=== PATIENT | male | born 1965 | race Caucasian/White ===

== ENCOUNTER 2020-07-03 09:58 | Outpatient (REF) | payer BC, SELFPAY ==
[2020-07-03 11:36] LABS: Estimated Average Glucose 226 mg/dL; Hemoglobin A1c % 9.5 %
[2020-07-03 12:05] LABS: Alanine Aminotransferase 34 U/L (0-40); Alkaline Phosphatase 62 U/L (39-117); Anion Gap 14 (12-20); Aspartate Amino Transferase 23 U/L (5-37); Bilirubin Total 0.7 mg/dL (0.0-1.0); Blood Urea Nitrogen 17 mg/dL (9-16); Calcium 8.4 mg/dL (8.4-10.2); Carbon Dioxide 27 mmol/L (22-29); Chloride 102 mmol/L (96-108); Cholesterol 231 mg/dL; Estimated Glomerular Filt Rate > 60; Glucose Fasting 227 mg/dL (60-99); HDL Cholesterol 42 mg/dL; LDL Cholesterol Calculated 163 mg/dl; Potassium 4.1 mmol/L (3.3-5.1); Sodium 139 mmol/L (135-145); Total Protein 6.4 g/dL (6.5-8.0); Triglycerides 131 mg/dL
[2020-07-03 12:25] LABS: Prostate Specific Antigen 0.44 ng/mL (<0.05-4.0)
== END 2020-07-03 09:59 | disposition home or self-care (01) ==
LOC: HO.MANLDS 09:58
PROVIDERS: PCP Internal Medicine; Visit Provider Internal Medicine
DX: Z00.01 Encounter for general adult medical examination with abnormal findings (principal); Z12.5 Encounter for screening for malignant neoplasm of prostate; E11.9 Type 2 diabetes mellitus without complications
CPT/HCPCS: 36415; 80053; 80061; 82043; 83036; 84153

== ENCOUNTER 2020-08-21 10:09 | Outpatient (REF) | payer BC, SELFPAY ==
[2020-08-21 11:55] LABS: Estimated Average Glucose 192 mg/dL; Hemoglobin A1c % 8.3 %
== END 2020-08-21 10:10 | disposition home or self-care (01) ==
LOC: HO.MANLDS 10:09
PROVIDERS: PCP Internal Medicine; Visit Provider Internal Medicine
DX: E11.9 Type 2 diabetes mellitus without complications (principal)
CPT/HCPCS: 36415; 83036

== ENCOUNTER 2020-10-29 08:00 | Outpatient (REF) | payer BC, SELFPAY ==
[2020-10-29 11:31] LABS: Estimated Average Glucose 174 mg/dL; Hemoglobin A1c % 7.7 %
== END 2020-10-29 08:01 | disposition home or self-care (01) ==
LOC: HO.MANLDS 08:00
PROVIDERS: PCP Internal Medicine; Visit Provider Internal Medicine
DX: E11.9 Type 2 diabetes mellitus without complications (principal)
CPT/HCPCS: 36415; 83036

== ENCOUNTER 2021-02-05 08:07 | Outpatient (REF) | payer BC, SELFPAY ==
[2021-02-05 11:13] LABS: Estimated Average Glucose 200 mg/dL; Hemoglobin A1c % 8.6 %
== END 2021-02-05 08:08 | disposition home or self-care (01) ==
LOC: HO.MANLDS 08:07
PROVIDERS: PCP Internal Medicine; Visit Provider Internal Medicine
DX: E11.9 Type 2 diabetes mellitus without complications (principal)
CPT/HCPCS: 36415; 83036

== ENCOUNTER 2021-06-13 12:10 | Outpatient (REF) | payer BC, SELFPAY ==
[2021-06-13 14:11] LABS: Estimated Average Glucose 131 mg/dL; Hemoglobin A1c % 6.2 %
== END 2021-06-13 12:11 | disposition home or self-care (01) ==
LOC: HO.10HDL 12:10
PROVIDERS: Visit Provider Internal Medicine
DX: E11.9 Type 2 diabetes mellitus without complications (principal)
CPT/HCPCS: 36415; 83036

== ENCOUNTER 2021-09-03 12:09 | Outpatient (REF) | payer BC, SELFPAY ==
[2021-09-03 13:52] LABS: Estimated Average Glucose 137 mg/dL; Hemoglobin A1c % 6.4 %
== END 2021-09-03 12:10 | disposition home or self-care (01) ==
LOC: HO.MANLDS 12:09
PROVIDERS: Visit Provider Internal Medicine
DX: E11.9 Type 2 diabetes mellitus without complications (principal)
CPT/HCPCS: 36415; 83036

== ENCOUNTER 2021-12-11 09:55 | Outpatient (REF) | payer BC, SELFPAY ==
[2021-12-11 12:07] LABS: Creatinine Urine 414.85 mg/dL; Microalbum/Creatinine Ratio Ur 14.4 ug/mg cr
[2021-12-11 12:16] LABS: Alanine Aminotransferase 31 U/L (0-40); Albumin Level 4.3 g/dL (3.5-5.0); Alkaline Phosphatase 57 U/L (39-117); Anion Gap 16 (12-20); Aspartate Amino Transferase 23 U/L (5-37); Bilirubin Total 0.5 mg/dL (0.0-1.0); Blood Urea Nitrogen 17 mg/dL (9-16); Calcium 8.9 mg/dL (8.4-10.2); Carbon Dioxide 27 mmol/L (22-29); Chloride 103 mmol/L (96-108); Cholesterol 219 mg/dL; Estimated Glomerular Filt Rate > 60; Glucose Random 109 mg/dL (60-115); HDL Cholesterol 46 mg/dL; Iron 85 mcg/dL (45-160); LDL Cholesterol Calculated 157 mg/dl; Percent Iron Saturation 19 % (15-50); Potassium 4.6 mmol/L (3.3-5.1); Sodium 141 mmol/L (135-145); Total Iron Binding Capacity 443 mcg/dL (228-428); Total Protein 7.1 g/dL (6.5-8.0); Triglycerides 83 mg/dL; Unsaturated Iron Binding 358 ug/dL
[2021-12-11 12:28] LABS: Ferritin 126 ng/mL (20-250)
[2021-12-11 13:14] LABS: Estimated Average Glucose 117 mg/dL; Hemoglobin A1c % 5.7 %
[2021-12-11 13:36] LABS: Vitamin B12 440 pg/mL (200-900)
== END 2021-12-11 09:56 | disposition home or self-care (01) ==
LOC: HO.MANLDS 09:55
PROVIDERS: Visit Provider Internal Medicine
DX: E11.9 Type 2 diabetes mellitus without complications (principal); G25.81 Restless legs syndrome
CPT/HCPCS: 36415; 80053; 80061; 82043; 82607; 82728; 83036; 83540

== ENCOUNTER 2022-03-07 09:45 | Outpatient (REF) | payer BC, SELFPAY ==
[2022-03-07 11:54] LABS: Cholesterol 203 mg/dL; HDL Cholesterol 42 mg/dL; LDL Cholesterol Calculated 143 mg/dl; Triglycerides 92 mg/dL
[2022-03-07 14:44] LABS: Estimated Average Glucose 120 mg/dL; Hemoglobin A1c % 5.8 %
== END 2022-03-07 09:46 | disposition home or self-care (01) ==
LOC: HO.MANLDS 09:45
PROVIDERS: Visit Provider Internal Medicine
DX: E11.9 Type 2 diabetes mellitus without complications (principal)
CPT/HCPCS: 36415; 80061; 83036

== ENCOUNTER 2022-06-06 11:15 | Outpatient (REF) | payer BC, SELFPAY ==
[2022-06-06 14:47] LABS: Estimated Average Glucose 131 mg/dL; Hemoglobin A1C 175.3945 umol/L; Hemoglobin A1c % 6.2 %
[2022-06-06 15:06] LABS: Cholesterol 199 mg/dL; HDL Cholesterol 44 mg/dL; LDL Cholesterol Calculated 137 mg/dl; Triglycerides 93 mg/dL
== END 2022-06-06 11:16 | disposition home or self-care (01) ==
LOC: HO.MANLDS 11:15
PROVIDERS: Visit Provider Internal Medicine
DX: E11.9 Type 2 diabetes mellitus without complications (principal)
CPT/HCPCS: 36415; 80061; 83036

== ENCOUNTER 2022-10-13 10:06 | Outpatient (REF) | payer BC, SELFPAY ==
[2022-10-13 14:12] LABS: Estimated Average Glucose 131 mg/dL; Hemoglobin A1c % 6.2 %
[2022-10-13 14:22] LABS: Cholesterol 163 mg/dL; HDL Cholesterol 53 mg/dL; LDL Cholesterol Calculated 93 mg/dl; Triglycerides 87 mg/dL
== END 2022-10-13 10:07 | disposition home or self-care (01) ==
LOC: HO.MANLDS 10:06
PROVIDERS: Visit Provider Internal Medicine
DX: E11.9 Type 2 diabetes mellitus without complications (principal)
CPT/HCPCS: 36415; 80061; 83036

== ENCOUNTER 2023-02-23 09:25 | Outpatient (REF) | payer BC, SELFPAY ==
[2023-02-23 13:40] LABS: Estimated Average Glucose 154 mg/dL
[2023-02-23 14:26] LABS: Alanine Aminotransferase 27 U/L (0-40); Albumin Level 4.1 g/dL (3.5-5.0); Alkaline Phosphatase 59 U/L (39-117); Anion Gap 10 (12-20); Aspartate Amino Transferase 26 U/L (5-37); Bilirubin Total 0.4 mg/dL (0.0-1.0); Blood Urea Nitrogen 14 mg/dL (9-16); Calcium 8.9 mg/dL (8.4-10.2); Carbon Dioxide 26 mmol/L (22-29); Chloride 107 mmol/L (96-108); Cholesterol 216 mg/dL (<200); Estimated Glomerular Filt Rate > 60; Glucose Random 112 mg/dL (60-115); HDL Cholesterol 53 mg/dL (>40); LDL Cholesterol Calculated 138 mg/dL (<100); Sodium 139 mmol/L (135-145); Total Protein 7.2 g/dL (6.5-8.0); Triglycerides 125 mg/dL (<150)
== END 2023-02-23 09:26 | disposition home or self-care (01) ==
LOC: HO.MANLDS 09:25
PROVIDERS: Visit Provider Internal Medicine
DX: E11.9 Type 2 diabetes mellitus without complications (principal)
CPT/HCPCS: 36415; 80053; 80061; 83036

== ENCOUNTER 2023-07-03 08:26 | Outpatient (REF) | payer BC, SELFPAY ==
[2023-07-03 13:32] LABS: Estimated Average Glucose 117 mg/dL; Hemoglobin A1c % 5.7 % (<6.0)
[2023-07-03 14:29] LABS: Alanine Aminotransferase 28 U/L (0-40); Albumin Level 4.1 g/dL (3.5-5.0); Alkaline Phosphatase 52 U/L (39-117); Anion Gap 14 (12-20); Aspartate Amino Transferase 29 U/L (5-37); Bilirubin Total 0.7 mg/dL (0.0-1.0); Blood Urea Nitrogen 20 mg/dL (9-16); Calcium 9.9 mg/dL (8.4-10.2); Carbon Dioxide 27 mmol/L (22-29); Chloride 104 mmol/L (96-108); Cholesterol 131 mg/dL (<200); Estimated Glomerular Filt Rate > 60; Glucose Random 111 mg/dL (60-115); HDL Cholesterol 52 mg/dL (>40); LDL Cholesterol Calculated 68 mg/dL (<100); Potassium 5.1 mmol/L (3.3-5.1); Sodium 140 mmol/L (135-145); Total Protein 7.3 g/dL (6.5-8.0); Triglycerides 55 mg/dL (<150)
== END 2023-07-03 08:27 | disposition home or self-care (01) ==
LOC: HO.MANLDS 08:26
PROVIDERS: Visit Provider Internal Medicine
DX: E11.9 Type 2 diabetes mellitus without complications (principal)
CPT/HCPCS: 36415; 80053; 80061; 83036

== ENCOUNTER 2023-09-28 10:03 | Outpatient (REF) | payer BC, SELFPAY ==
[2023-09-28 13:41] LABS: Estimated Average Glucose 143 mg/dL; Hemoglobin A1C 206.8032 umol/L; Hemoglobin A1c % 6.6 % (<6.0)
== END 2023-09-28 10:04 | disposition home or self-care (01) ==
LOC: HO.MANLDS 10:03
PROVIDERS: Visit Provider Internal Medicine
DX: E11.9 Type 2 diabetes mellitus without complications (principal)
CPT/HCPCS: 36415; 83036

== ENCOUNTER 2023-10-28 11:41 | Outpatient (REF) | payer BC, SELFPAY ==
[2023-10-28 13:21] LABS: MANUAL DIFF FLAG NO
[2023-10-28 13:32] LABS: Basophils Percent Auto 0.5 % (0-2); Eosinophils Absolute Auto 0.1 X10*3/uL (0.0-0.4); Eosinophils Percent Auto 1.4 % (0-4); Hematocrit 44.6 % (42.0-52.0); Hemoglobin 15.1 g/dl (14.0-18.0); Imm Gran Abs Auto 0.02 X10*3/uL (0.00-0.03); Imm Gran Pct Auto 0.4 % (0.0-0.4); Lymphocytes Absolute Auto 1.3 X10*3/uL (1.2-4.9); Lymphocytes Percent Auto 23.1 % (20-40); Mean Corpuscular HGB Conc 33.9 g/dl (31.0-36.0); Mean Corpuscular Hemoglobin 30.4 pg (27.0-33.0); Mean Corpuscular Volume 89.9 fL (80.0-98.0); Mean Platelet Volume 9.9 fL (9.4-12.4); Monocytes Absolute Auto 0.3 X10*3/uL (0.1-1.2); Monocytes Percent Auto 5.9 % (2-11); Neutrophils Absolute Auto 3.8 x10*3/uL (2.0-8.3); Neutrophils Percent Auto 68.7 % (45-73); Platelet Count 153 X10*3/uL (160-400); Red Blood Count 4.96 X10*6/uL (4.60-5.80); Red Cell Distribution Width 13.1 % (11.0-16.0); White Blood Count 5.6 X10*3/uL (4.8-10.8)
[2023-10-28 14:06] LABS: Erythrocyte Sedimentation Rate 7 MM/HR (0-15)
[2023-10-28 14:23] LABS: Alanine Aminotransferase 23 U/L (0-40); Albumin Level 4.1 g/dL (3.5-5.0); Alkaline Phosphatase 55 U/L (39-117); Amylase 42 U/L (28-100); Anion Gap 12 (12-20); Aspartate Amino Transferase 24 U/L (5-37); Bilirubin Total 0.6 mg/dL (0.0-1.0); Blood Urea Nitrogen 19 mg/dL (9-16); Calcium 9.3 mg/dL (8.4-10.2); Carbon Dioxide 27 mmol/L (22-29); Chloride 109 mmol/L (96-108); Estimated Glomerular Filt Rate > 60; Glucose Random 89 mg/dL (60-115); Lipase 25 U/L (8-78); Potassium 4.9 mmol/L (3.3-5.1); Sodium 143 mmol/L (135-145)
== END 2023-10-28 11:42 | disposition home or self-care (01) ==
LOC: HO.MANLDS 11:41
PROVIDERS: Visit Provider Internal Medicine
DX: R10.11 Right upper quadrant pain (principal)
CPT/HCPCS: 36415; 80053; 82150; 83690; 85025; 85652

== ENCOUNTER 2023-11-06 09:28 | Outpatient (REF) | payer BC, SELFPAY ==
--- NOTE | ~2023-11-06 | US_ITS ---
EXAMINATION: US ABDOMEN COMPLETE CLINICAL INFORMATION: Right upper quadrant pain. COMPARISON: None available. TECHNIQUE: Real-time imaging of the abdominal viscera. FINDINGS: PANCREAS: Limited visualization. ABDOMINAL AORTA: Atherosclerotic changes. Visualized portions are normal. INFERIOR VENA CAVA: Visualized portions are normal. LIVER: The liver is normal in size. The liver contour is normal. There is diffuse increased liver parenchymal echogenicity, consistent with hepatic steatosis. No definite focal lesion is seen, but evaluation is limited due to poor sound beam penetration through the coarse echogenic liver parenchyma. There is no intrahepatic biliary duct dilatation seen. GALLBLADDER: Possible gallbladder wall thickening up to 5 mm. The gallbladder is physiologically distended without evidence of stones, sludge, polyps, or pericholecystic fluid. Negative sonographic Underwood sign. COMMON BILE DUCT: Normal in caliber measuring 0.4 cm in diameter. RIGHT KIDNEY: No hydronephrosis. No renal calculi or focal parenchymal lesions. The kidney measures 12.6 cm in maximum dimension. LEFT KIDNEY: No hydronephrosis. No renal calculi or focal parenchymal lesions. The kidney measures 12.8 cm in maximum dimension. SPLEEN: The spleen measures 13.3 cm in maximum dimension. FREE FLUID: None. US/US abdomen complete IMPRESSION: Nonspecific gallbladder wall thickening. Hepatic steatosis.
== END 2023-11-06 09:29 | disposition home or self-care (01) ==
LOC: HO.US 09:28
PROVIDERS: PCP Internal Medicine; Visit Provider Internal Medicine
DX: R10.11 Right upper quadrant pain (principal)
CPT/HCPCS: 76700

== ENCOUNTER 2023-12-23 10:28 | Outpatient (REF) | payer BC, SELFPAY ==
[2023-12-23 14:58] LABS: Alanine Aminotransferase 23 U/L (0-40); Albumin Level 3.9 g/dL (3.5-5.0); Alkaline Phosphatase 56 U/L (39-117); Anion Gap 12 (12-20); Aspartate Amino Transferase 19 U/L (5-37); Bilirubin Total 0.5 mg/dL (0.0-1.0); Blood Urea Nitrogen 17 mg/dL (9-16); Calcium 9.3 mg/dL (8.4-10.2); Carbon Dioxide 25 mmol/L (22-29); Chloride 107 mmol/L (96-108); Estimated Glomerular Filt Rate > 60; Glucose Random 157 mg/dL (60-115); Potassium 4.2 mmol/L (3.3-5.1); Sodium 140 mmol/L (135-145); Total Protein 6.8 g/dL (6.5-8.0)
== END 2023-12-23 10:29 | disposition home or self-care (01) ==
LOC: HO.MANLDS 10:28
PROVIDERS: Visit Provider Internal Medicine
DX: E11.9 Type 2 diabetes mellitus without complications (principal)
CPT/HCPCS: 36415; 80053

== ENCOUNTER 2024-01-11 15:04 | Outpatient (REF) | payer BC, SELFPAY ==
--- NOTE | ~2024-01-11 | CT_ITS ---
EXAMINATION: CT ABDOMEN WITH CONTRAST CLINICAL INFORMATION: Disease of gallbladder. COMPARISON: Ultrasound of abdomen November 06, 2023 TECHNIQUE: Contiguous axial thin section helical images of the abdomen were performed following the administration of oral contrast and 85 mL of Omnipaque 350 intravenous contrast. The data set was reformatted in the coronal and sagittal planes and reviewed on an independent workstation. This CT examination was performed using dose optimization techniques as appropriate, variously including the following: *Automated exposure control *Adjustment of mA and/or kV according to patient size (this includes techniques or standardized protocols for targeted exams where dose is matched to indication/reason for exam; i.e. extremities or head) *Use of iterative reconstruction technique DLP: 554 mGy-cm FINDINGS: LUNG BASES: The lungs bases are normally aerated. No pleural effusion. LIVER, GALLBLADDER, AND BILIARY TREE: No focal liver lesion. No intrahepatic bile duct dilatation. PANCREAS: Unremarkable. SPLEEN: Unremarkable. ADRENAL GLANDS AND KIDNEYS: The adrenal glands and kidneys are normal. Normal enhancement of the parenchyma of both kidneys. No hydronephrosis calculus or mass. BOWEL LOOPS: Nonspecific mild bowel wall thickening of the second and third portion of the duodenum. Coronal image 71/133 series 4. No edema however in the adjacent mesenteric and retroperitoneal fat. The remainder of the visualized small bowel loops are normal. No bowel obstruction. Stomach is normal. Partially visualized appendix unremarkable. LYMPH NODES: No significant lymphadenopathy. VASCULAR: Unremarkable. BONES: Multilevel degenerative spondylosis spine. CT/CT abdomen w IV con IMPRESSION: 1. Nonspecific mild bowel wall thickening of the second and third portion of the duodenum. No edema however in the adjacent mesenteric and retroperitoneal fat. 2. Otherwise unremarkable CT of abdomen. Fleischner guidelines were followed. Electronically signed by: Rudy Bob MD 02/06/2024 09:58 PM EDT
[2024-01-11] MEDS: iohexoL 350 MG/ML 100 ML INFUS..BTL IV (16:18)
[2024-01-11] MEDS: Barium Sulfate Oral (Vanilla) 450 ML ORAL.SUSP PO (16:19)
== END 2024-01-11 15:05 | disposition home or self-care (01) ==
LOC: HO.CT 15:04
PROVIDERS: PCP Internal Medicine; Visit Provider Physician Assistant
DX: K82.9 Disease of gallbladder, unspecified (principal)
CPT/HCPCS: 74160; Q9967

== ENCOUNTER 2024-12-06 09:26 | Outpatient (REF) | payer BC, SELFPAY ==
--- OUTSIDE RECORDS SUMMARY | 2024-12-06 10:25 | XMS_ITS | Encounter Summary ---
Author Organization [facility] Address [address] [place] [address] Phone Care Team Providers Care Medical Office Asst Name Role Phone ParishRamin skinner Valerie ULRICH Primary Care Provider [phone] Parishbrody Ramin Valerie Unavailable Encounter Details Date Type Department Care Team (Late st Contact Info) Description 10/19/2024 Procedure Pass [facility], [facility] [address] [place] [address] Social History Tobacco Use Types Packs/Day Years Used Date Smoking Tobacco: Former Cigarettes Smokeless Tobacco: Never Comments:Smoked over 40 yrs ago Alcohol Use Standard Drinks/Week Comments Yes 0 (1 standard drink = 0.6 oz pur e alcohol) 0 to 1 per month Home Health Assessment: Transportation Answer Date Recorded Lack of Transportation (Medical) No 11/07/2022 Lack of Transportation (Non-Medical) No 11/07/2022 Patient Unable or Declines to Respond No 11/07/2022 Education Answer Date Recorded Are you interested in more education? Not on maylin e 08/01/2022 Are you concerned about learning? Not on file 08/01/2022 No 08/01/2022 No 08/01/2022 Digital Access Answer Date Recorded No 08/29/2022 No 08/29/2022 Reliable internet access at home? Not on file 08/29/2022 Device with a working camera? Not on file Intimate Partner Violence Answer Date R ecorded Are you denied basic needs s uch as food, clothing, or medical care? No 03/29/2024 In the past 12 months have y ou been in a relationship with a person who hurts, threatens, or tries to control you? No 03/29/2024 Are you denied basic needs s uch as food, clothing, or medical care? No 03/29/2024 In the past 12 months have y ou been in a relationship with a person who hurts, threatens, or tries to control you? No 03/29/2024 Sex and Gender Information Value Date Recorded Sex Assigned at Male 06/06/2017 6:47 PM EST Legal Sex Male 9:40 PM EDT Gender Identity Male 06/06/2017 6:47 PM EST Sexual Orientation Not on file documented as of this encounter Plan of Treatment Upcoming Encounters Date Type Department Care Team (Late st Contact Info) Description 04/09/2025 9:15 AM EST Appointment [facility], [address] [address] Shannon Lofton PA [address] [facility] [place] [address] documented as of this encounter Visit Diagnoses Not on filedocumented in this encounter Care Teams Medical Office Asst Relationship Specialty Start Date End Date Ramin Neely DO PCP - General 01/19/17 Ramin Neely DO [address] [place] [address] [place] [address] Insurance Assigned Provider 07/11/23 documented as of this encounter Additional Source Comments The information contained in this document represents components of the legal health record. It is not the complete legal health record.[facility]
--- OUTSIDE RECORDS SUMMARY | 2024-12-06 10:25 | XMS_ITS | Encounter Summary ---
Author Organization [facility] Address [address] [facility] [address] [place] [address] Phone Care Team Providers Care Clinical Administrator Name Role Phone Ramin Neely DO Primary Care Provider [phone] Ramin Neely DO Unavailable Reason for Referral * MRI/CAT Scan - Closed Specialty Diagnoses / Procedures Referred By Jeremi hilton Referred To Contact Radiology Diagnoses Primary osteoarthritis, right shoulder Procedures MRI Shoulder (Right) Shannon Lofton PA [address] [facility] [place] [address] [place] [address] Phone: tel: fax: Referral ID Status Reason Start Date Expiration Date Visits Re quested Visits Authorized [id number] Closed 10/19/2024 10/19/2025 1 1 Encounter Details Date Type Department Care Team (Latest Contact Info) Description 10/19/2024 Transcribe Orders Virtual Department [address] [place] [address] Shannon Lofton PA [address] [facility] [place] [address] Primary osteoarthritis, right shoulder (Primary Dx) Social History Tobacco Use Types Packs/Day Years [...] Info) Description 04/09/2025 9:15 AM EST Appointment [facility], [facility] Density [address] [address] Shannon Lofton PA [address] [place] [address] documented as of this encounter Results * MRI SHOULDER WITHOUT CONTRAST (RIGHT) (11/12/2024 8:40 AM EDT) Anatomical Region Laterality Modality Shoulder Right Magnetic Resonan ce 11/15/2024 2:53 PM EDT Impressions 11/15/2024 3:02 PM EDT 1. Severe glenohumeral joint degenerative changes. 2. Moderate rotator cuff tendinosis with fraying of the supraspinatus tendon. No high-grade or full-thickness rotator cuff tear. 3. Intra-articular long head of the biceps tendinosis. 4. Mild acromioclavicular joint degenerative changes. Narrative 11/15/2024 3:02 PM EDT MRI SHOULDER WITHOUT CONTRAST (RIGHT) Referring clinician's provided indication for this examination in [facility]: Outside Radiology Order; right shoulder pain TECHNIQUE: Multi-sequence, multi-planar MRI of the shoulder without intravenous contrast. COMPARISON: XR SHOULDER 2 OR MORE VIEWS (RIGHT) FINDINGS: Coracoacromial Arch: Mild acromioclavicular joint degenerative changes. Minimal distention of the subacromial-subdeltoid bursa. Rotator Cuff: Moderate supraspinatus tendinosis with articular and bursal surface fraying, most pronounced anteriorly. Moderate infraspinatus and subscapularis tendinosis. Intact teres minor. Mild fatty atrophy of the teres minor muscle. There is also fatty infiltration along the infraspinatus myotendinous junction. Glenoid Labrum and Biceps Tendon: Diffuse degeneration and tearing of the glenoid labrum. Mild tendinosis of the intra-articular long head of the biceps tendon. The tendon remains intact at the superior glenoid tubercle and normally located within the bicipital groove. Bones: No fracture, osteonecrosis, or suspicious lesion. Reactive cystic changes and edema at the greater and lesser tuberosities. Glenohumeral Joint: Severe degenerative changes of the glenohumeral joint with joint space narrowing and high-grade and full thickness chondral loss most pronounced posteriorly. Subchondral cystic changes are also most pronounced within the posterior glenoid. Small joint effusion with synovitis. Procedure Note Krishan Faulkner MD - 11/15/2024 MRI SHOULDER WITHOUT CONTRAST (RIGHT) Referring clinician's provided indication for this examination in [facility]:Outside Radiology Order; right shoulder pain TECHNIQUE: Multi-sequence, multi-planar MRI of the shoulder withoutintravenous contrast. COMPARISON: XR SHOULDER 2 OR MORE VIEWS (RIGHT) FINDINGS: Coracoacromial Arch: Mild acromioclavicular joint degenerative changes.Minimal distention of the subacromial-subdeltoid bursa. Rotator Cuff: Moderate supraspinatus tendinosis with articular and bursalsurface fraying, most pronounced anteriorly. Moderate infraspinatus andsubscapularis tendinosis. Intact teres minor. Mild fatty atrophy of theteres minor muscle. There is also fatty infiltration along theinfraspinatus myotendinous junction. Glenoid Labrum and Biceps Tendon: Diffuse degeneration and tearing of theglenoid labrum. Mild tendinosis of the intra-articular long head of thebiceps tendon. The tendon remains intact at the superior glenoid tubercleand normally located within the bicipital groove. Bones: No fracture, osteonecrosis, or suspicious lesion. Reactive cysticchanges and edema at the greater and lesser tuberosities. Glenohumeral Joint: Severe degenerative changes of the glenohumeral jointwith joint space narrowing and high-grade and full thickness chondral lossmost pronounced posteriorly. Subchondral cystic changes are also mostpronounced within the posterior glenoid. Small joint effusion withsynovitis. IMPRESSION: 1. Severe glenohumeral joint degenerative changes. 2. Moderate rotator cuff tendinosis with fraying of the supraspinatustendon. No high-grade or full-thickness rotator cuff tear. 3. Intra-articular long head of the biceps tendinosis. 4. Mild acromioclavicular joint degenerative changes. Shannon RODRIGEZ IMG MR EXTREMITY Final Resu lt documented in this encounter Visit Diagnoses Diagnosis Primary osteoarthritis, right shoulder- Primary Primary osteoarthritis, right shoulder documented in this encounter Care Teams Clinical Administrator Relationship Specialty Start Date End Date Ramin Neley DO PCP - General 01/19/17 Ramin Neely DO [address] [place] [address] [email or web address] Insurance Assigned Provider 07/11/23 documented as of this encounter Additional Source Comments The information contained in this document represents components of the legal health record. It is not the complete legal health record.[facility]
--- OUTSIDE RECORDS SUMMARY | 2024-12-06 10:25 | XMS_ITS | Encounter Summary ---
Author Organization [facility] Address [address] [facility] [address] [place] [address] Phone Care Team Providers Care Medical Assistant Per Diem Name Role Phone Ramin Neely Primary Care Provider [phone] Ramin Neely DO Unavailable Encounter Details Date Type Department Care Team ([facility] Contact Info) Description 09/26/2022 Transcribe Orders [facility]EN [address] [place] [address] Anette Leija, STORE DELI MANAGER [address] [address] [email or web address] Social History Tobacco Use Types Packs/Day Years Used Date Smoking Tobacco: Never Smokeless Tobacco: Never Alcohol Use Standard Drinks/Week Comments Yes 0 (1 standard drink = 0.6 oz pur e alcohol) 0 to 1 per month Education Answer Date Recorded Are you interested in more education? Not on maylin e 08/01/2022 Are you concerned about learning? Not on file 08/01/2022 No 08/01/2022 No 08/01/2022 Digital Access Answer Date Recorded No 08/29/2022 No 08/29/2022 Reliable internet access at home? Not on file 08/29/2022 Device with a working camera? Not on file Sex and Gender Information Value Date Recorded Sex Assigned at Male 06/06/2017 6:47 PM EST Legal Sex Male 9:40 PM EDT Gender Identity Male 06/06/2017 6:47 PM EST Sexual Orientation Not on file documented as of this encounter Plan of Treatment Upcoming Encounters Date Type Department Care Team (Late st Contact Info) Description 04/09/2025 9:15 AM EST Appointment [facility], [facility] [address] [place] [address] Shannon Lofton PA [address] [facility] [place] [address] documented as of this encounter Visit Diagnoses Not on filedocumented in this encounter Care Teams Medical Assistant Per Diem Relationship Specialty Start Date End Date Ramin Neely DO [email or web address] PCP - General 01/19/17 Ramin Neely DO [address] [facility] [place] [address] [place] [address] [email or web address] Insurance Assigned Provider 07/11/23 documented as of this encounter Additional Source Comments The information contained in this document represents components of the legal health record. It is not the complete legal health record.[facility]
--- OUTSIDE RECORDS SUMMARY | 2024-12-06 10:25 | XMS_ITS | Encounter Summary ---
Author Organization [facility] Address [address] [place] [address] Phone Care Team Providers Care Terrazzo Worker Helper Name Role Phone Ramin Neely Primary Care Provider [phone] Parishbrody Ramin Valerie Unavailable Encounter Details Date Type Department Care Team (Late st Contact Info) Description 09/26/2022 Procedure Pass [facility] [address] [place] [address] Social History Tobacco Use Types Packs/Day Years [...] Encounters Date Type Department Care Team (Late Contact Info) Description 04/09/2025 9:15 AM EST Appointment [facility], [facility] Density - [address] [address] Shannon Lofton PA [address] [facility] [place] [address] [place] [address] documented as of this encounter Visit Diagnoses Not on filedocumented in this encounter Care Teams Terrazzo Worker Helper Relationship Specialty Start Date End Date Ramin Neely DO [email or web address] PCP - General 01/19/17 Ramin Neely DO [address] [place] [address] [place] [address] Insurance Assigned Provider 07/11/23 documented as of this encounter Additional Source Comments The information contained in this document represents components of the legal health record. It is not the complete legal health record.[facility]
--- OUTSIDE RECORDS SUMMARY | 2024-12-06 10:26 | XMS_ITS | Encounter Summary ---
Author Organization [facility] Address [address] [facility] [address] [place] [address] Phone Care Team Providers Care Window Assembler Name Role Phone Ramin Neely Primary Care Provider [phone] ParishRamin skinner DO Unavailable Encounter Details Date Type Department Care Team (Late st Contact Info) Description 10/14/2024 Ancillary Orders Virtual Department [address] [place] [address] Shannon Lofton PA [address] [facility] [place] [address] Bilateral shoulder pain, unspecified chronicity (Primary Dx) Social History Tobacco Use Types [...] Info) Description 04/09/2025 9:15 AM EST Appointment [facility], Bone [address] [address] Shannon Lofton PA [address] [facility] [place] [address] documented as of this encounter Results * XR SHOULDER 2 VIEWS (LEFT) (10/14/2024 11:15 AM EDT) Anatomical Region Laterality Modality Shoulder Left Computed Radiogr aphy 10/14/2024 6:19 PM EDT Narrative 10/14/2024 6:19 PM EDT XR SHOULDER 2 OR MORE VIEWS (LEFT) Referring clinician's provided indication for this examination in Epic: Outside Radiology Order; shoulder pain COMPARISON: April 08, 2017 FINDINGS: No fracture. Normal glenohumeral alignment Mild osteoporosis radius in the acromioclavicular and glenohumeral joints. The visualized portions of the lungs are clear. Procedure Note Jason Sharp MD, MICHELLE - 10/14/2024 XR SHOULDER 2 OR MORE VIEWS (LEFT) Referring clinician's provided indication for this examination in Epic:Outside Radiology Order; shoulder pain COMPARISON: April 08, 2017 FINDINGS: No fracture. Normal glenohumeral alignment Mild osteoporosis radius in the acromioclavicular and glenohumeral joints.The visualized portions of the lungs are clear. Shannon RODRIGEZ IMG XR UPPER EXTREMITY Nataliya l Result documented in this encounter Visit Diagnoses Diagnosis Bilateral shoulder pain, unspecified chronicity Bilateral shoulder pain, unspecified chronicity- Primary documented in this encounter Care Teams Window Assembler Relationship Specialty Start Date End Date Ramin Neely DO PCP - General 01/19/17 Ramin Neely DO [address] [place] [address] Insurance Assigned Provider 07/11/23 documented as of this encounter Additional Source Comments The information contained in this document represents components of the legal health record. It is not the complete legal health record.[facility]
--- OUTSIDE RECORDS SUMMARY | 2024-12-06 10:26 | XMS_ITS | Encounter Summary ---
Author Organization [facility] Address [address] [place] [address] [place] [address] Phone Care Team Providers Care Concrete Pipe Maker Name Role Phone Parishbrody Ramin Padilla DO Primary Care Provider [phone] Ramin Neely DO Unavailable Encounter Details Date Type Department Care Team (Late Contact Info) Description 11/12/2018 Transcribe Orders Virtual Department [address] [place] [address] Ramin Neely DO [address] [facility] [place] [address] [place] [address] [email or web address] Unilateral primary osteoarthritis, right hip (Primary Dx); Osteoarthritis of hip, unspecified laterality, unspecified osteoarthritis type Social History Tobacco Use Types Packs/Day Years Used Date Smoking Tobacco: Never Smokeless Tobacco: Never Alcohol Use Standard Drinks/Week Comments Yes 0 (1 standard drink = 0.6 oz pur e alcohol) 0 to 1 per month Sex and Gender Information Value Date Recorded Sex Assigned at Male 06/06/2017 6:47 PM EST Legal Sex Male 9:40 PM EDT Gender Identity Male 06/06/2017 6:47 PM EST Sexual Orientation Not on file documented as of this encounter Plan of Treatment Upcoming Encounters Date Type Department Care Team (Late Contact Info) Description 04/09/2025 9:15 AM EST Appointment [facility], [facility] - [facility] [address] [place] [address] Shannon Lofton PA [address] [place] [address] documented as of this encounter Results * XR HIP 2 VW LEFT PLUS PELVIS (11/22/2018 11:15 AM EDT) Anatomical Region Laterality Modality Hip Left Radiographic Michelle ging 11/22/2018 11:2 7 AM EDT Impressions 11/22/2018 11:29 AM EDT Moderately severe osteoarthritis in the left hip with minimal progression since 2018. 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 Status post right hip replacement without acute pelvic bony pathology. POS - [id number] Narrative 11/22/2018 11:29 AM EDT COMPARISON: 04/08/2017 FINDINGS: An AP view of the pelvis reveals presence of a right hip prosthesis. No acute pelvic fracture apparent. Chronic lower lumbar degenerative facet arthropathy. AP neutral and frog-lateral views of the left hip disclose chronic disc space narrowing and acetabular articular surface sclerosis. There is mild spurring along the margins of the femoral head and slight cortical thickening at the head/neck junction. No erosive changes or aberrant soft tissue calcifications of significance identified. Procedure Note Altagracia Kincaid MD - 11/22/2018 COMPARISON: 04/08/2017 FINDINGS: An AP view of the pelvis reveals presence of a right hip prosthesis. Noacute pelvic fracture apparent. Chronic lower lumbar degenerative facetarthropathy. AP neutral and frog-lateral views of the left hip disclose chronic discspace narrowing and acetabular articular surface sclerosis. There is mildspurring along the margins of the femoral head and slight corticalthickening at the head/neck junction. No erosive changes or aberrant softtissue calcifications of significance identified. IMPRESSION: Moderately severe osteoarthritis in the left hip with minimal progressionsince 2017. 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 Status post right hip replacement without acute pelvic bonypathology. POS - [id number] us Ramin A Bigda DO IMG XR PELVIS Final Result documented in this encounter Visit Diagnoses Diagnosis Unilateral primary osteoarthritis, right hip- Primary Osteoarthritis of hip, unspecified laterality, unspecified osteoarthritis type Unilateral primary osteoarthritis, right hip Osteoarthritis of hip, unspecified laterality, unspecified osteoarthritis type documented in this encounter Care Teams Concrete Pipe Maker Relationship Specialty Start Date End Date Ramin Neely DO [email or web address] PCP - General 01/19/17 Ramin Neely DO [address] [place] [address] [email or web address] Insurance Assigned Provider 07/11/23 documented as of this encounter Additional Source Comments The information contained in this document represents components of the legal health record. It is not the complete legal health record.[facility]
--- OUTSIDE RECORDS SUMMARY | 2024-12-06 10:26 | XMS_ITS | Clinical Summary ---
Author Organization [facility] Address [address] [address] Phone Care Team Providers Care Pipe Installer Name Role Phone Parishbrody Ry Valerie Primary Care Provider [phone] Ry Aranda Valerie DO Unavailable Allergies Active Allergy Reactions Criticality Noted Date Comments Aspirin Hives Low 05/20/2017 Tolerated post-LUIGI 2020 at [facility] Bee Venom Protein (Honey Bee) Swelling Medium 05/20/2017 Lisinopril Nausea Only 03/23/2024 Metformin Nausea Only Low 03/23/2024 Tree Nut Rash,Hypotension,Gerhard s ea and/or Vomiting High 03/29/2024 Penicillins Hives Medium 06/06/2017 Other Reaction(s): Not available Tree Nuts Angioedema High 05/20/2017 Medications EPIPEN 2-CONNIE 0.3 mg/0.3 mL auto-injector USE 1 PEN NEEDED 0 8 Active omeprazole (PRILOSEC) 20 MG capsule Take 40 mg by mouth daily. 4 Active rOPINIRole (REQUIP) 3 MG tablet Take 3 mg by mouth 3 (three) times a day. Active esomeprazole (NEXIUM) 40 MG capsuleIndicati ons:dyspepsia Take 40 mg by mouth daily before breakfast. Indications: indigestion Active scopolamine (TRANSDERM-SCOP ) 1 mg over 3 daysIndications :for nausea Place 1 patch onto the skin every third day. Yest am, removed yest at 10pm Indications: for nausea Active Active Problems Problem Noted Date Diagnosed Date History of revision of total hip arthroplasty Overview (10/26/2022): S/p revision L total hip arthroplasty 10/24/22 Dr. Jayden Cancino @ [facility] Failure of total hip arthroplasty, initial encou nter 10/24/2022 Obstructive sleep apnea syndrome 10/10/2022 10/10/2022 Hypercholesterolemia 06/11/2022 10/10/2022 Type 2 diabetes mellitus 10/29/2020 023 Anxiety 04/05/2020 10/10/2022 Trigeminal neuralgia 08/24/2017 10/10/2022 Restless legs syndrome 08/24/2017 Osteoarthritis of hip 08/24/2017 10/10/2022 Encounters Date Type Department Care Team Description 11/12/2024 7:30 AM EDT - 11/12/2024 11:59 PM EDT Hospital Encounter [address] [address] Shannon Lofton PA Discharge Disposition: Home or Self Care 10/19/2024 Procedure Pass [address] [address] 10/19/2024 Transcribe Orders Virtual Department [address] [place] [address] Shannon Lofton PA Primary osteoarthritis, right shoulder (Primary Dx) 10/14/2024 10:55 AM EDT - 10/14/2024 11:59 PM EDT Hospital Encounter [address] [address] Shannon Lofton PA Discharge Disposition: Home or Self Care 10/14/2024 10:28 AM EDT - 10/14/2024 10:54 AM EDT Hospital Encounter [address] [address] Shannon Lofton PA Discharge Disposition: Home or Self Care 10/14/2024 9:55 AM EDT - 10/14/2024 10:27 AM EDT Hospital Encounter [facility] [address] [place] [address] Shannon Lofton PA Discharge Disposition: Home or Self Care 10/14/2024 Ancillary Orders [facility], X-Ray - Main Hospital [address] [place] [address] Shannon Lofton PA Bilateral shoulder pain, unspecified chronicity (Primary Dx) 10/14/2024 Ancillary Orders Virtual Department [address] [place] [address] Shannon Lofton PA Bilateral shoulder pain, unspecified chronicity (Primary Dx) 10/14/2024 Transcribe Orders [facility] [address] [place] [address] Shannon Lofton PA Pure hypercholesterolemia (Primary Dx); Hypercholesterolemia; Type 2 diabetes mellitus without complication, unspecified whether skilled nursing insulin use 10/05/2024 Transcribe Orders Virtual Department [address] [place] [address] Shannon Lofton PA Bilateral shoulder pain, unspecified chronicity (Primary Dx); Age-related osteoporosis without current pathological fracture from Last 3 Months Immunizations Immunization Administration Dates Next Due MMR 10/14/2024,07/22/2024 Varicella 07/22/2024 Social History Tobacco Use Types Packs/Day Years [...] PM EST Sexual Orientation Not on file Last Filed Vital Signs Vital Sign Reading Time Taken Comments Blood Pressure 125/86 03/29/2024 7:55 AM EST Pulse 82 03/29/2024 7:55 AM EST Temperature 36.1 C (97 F) 03/29/2024 7:45 AM EST Respiratory Rate 25 03/29/2024 7:55 AM EST Oxygen Saturation 96% 03/29/2024 7:55 AM EST Inhaled Oxygen Concentration - - Weight 123.4 kg (272 lb) 03/29/2024 7:08 AM EST Height 182.9 cm (6') 03/29/2024 7:08 AM EST Body Mass Index 36.89 03/29/2024 7:08 AM EST Plan of Treatment Upcoming Encounters Date Type Department Care Team (Late st Contact Info) Description 04/09/2025 9:15 AM EST Appointment [facility], Bone Density - [address] [address] Shannon Lofton PA [address] [place] [address] [place] [address] Health Maintenance Due Date Last Done Comments DEPRESSION SCREENING 1977 SMOKING Hx and SMOKELESS TOBACCO SCREENING 1978 HEPATITIS C SCREENING 09/02/1983 HIV ONE-TIME SCREENING (18-65 YEARS) 09/02/1983 COLOGUARD 2010 FIT TEST 2010 FOBT 2010 SIGMOIDOSCOPY 2010 VIRTUAL COLONOSCOPY 2010 PNEUMOCOCCAL VACCINES (50+ years) (2 of 2 - PCV) 06/08/2020 06/09/2019 DIABETIC EYE EXAM 10/10/2022 URINE MICROALBUMIN/CREATININE RATIO 12/11/2022 12/11/2021, 12/11/2021, 07/03/2020 BLOOD PRESSURE 05/08/2023 11/05/2022 ZOSTER VACCINES (1 of 2) 09/16/2024 INFLUENZA VACCINE (#1) 2024 , 02/04/2022, 02/21/2021, Additional history exists COVID-19 VACCINE ( season) 2024 02/04/2022, 02/04/2022, 05/25/2020, Additional history exists HEMOGLOBIN A1C 01/14/2025 10/14/2024, 09/05, 07/03/2023, Additional history exists LIPID PANEL 10/14/2025 10/14/2024, 06/05, 02/23/2023, Additional history exists COLONOSCOPY 03/18/2028 03/18/2018 COLORECTAL CANCER SCREENING 03/18/2028 Adult Td,Tdap Booster 06/08/2029 06/09/2019 HEPATITIS A VACCINES Aged Out No long er eligible based on patient's age to complete this topic HIB VACCINES Aged Out No longer eligi ble based on patient's age to complete this topic MENINGOCOCCAL VACCINES (ACWY) Aged Out No longer eligible based on patient's age to complete this topic MENINGOCOCCAL VACCINES (B) Aged Out N o longer eligible based on patient's age to complete this topic Medical Devices Implanted Type Area Director Medical Surgical Device Identifier Shelf Expiration Date Model / Serial / Lot Right Hip Screw Hip Left Hip Screw Bone 20mm Locking Redapt - [id number] Implanted:Qty: 1 on 10/24/2022 by Jayden Cancino MD at [facility] Left: [employer]et[employer] [id number] 10/31/2030 [id number] Description:The implant type , laterality (when applicable), size, and expiration date have been visually and verbally confirmed by the Surgeon, Circulating RN and Scrub Personnel. 40 Mm I.D. 58 Mm O.D. Lateralized +4mm Acetabular Liner Implanted:Qty: 1 on 10/24/2022 by Jayden Cancino MD at [facility] Left: Acetabulum MERY [id number] 05/28/2029 [id number] / / [id number] Description:The implant type , laterality (when applicable), size, and expiration date have been visually and verbally confirmed by the Surgeon, Circulating RN and Scrub Personnel. Adapter Sleeve 4.0mm Onley Femoral Hip Titanium V40 Plus - [id number] Implanted:Qty: 1 on 10/24/2022 by Jayden Cancino MD at [facility] Left: Acetabulum [employer] [id number] 07/09/2027 6519-T-[id number] / / [id number] Description:The implant type , laterality (when applicable), size, and expiration date have been visually and verbally confirmed by the Surgeon, Circulating RN and Scrub Personnel. Hip Head 0mm Onley Sz 40 Femoral Biolox Delta Ceramic Tapered - [id number] Implanted:Qty: 1 on 10/24/2022 by Jayden Cancino MD at [facility] Left: Acetabulum [employer] [id number] 06/21/2027 [id number] / / [id number] Description:The implant type , laterality (when applicable), size, and expiration date have been visually and verbally confirmed by the Surgeon, Circulating RN and Scrub Personnel. Acetabular Shell 58mm Redapt Modular - [id number] Implanted:Qty: 1 on 10/24/2022 by Jayden Cancino MD at [facility] Left: Acetabulum [employer] [id number] 11/13/2031 [id number] / / [id number] Description:The implant type , laterality (when applicable), size, and expiration date have been visually and verbally confirmed by the Surgeon, Circulating RN and Scrub Personnel. Screw Bone 6.5x35mm Hip Cancellous Spherical Head For Reflection System 16a Cs/1bx/1ea - [id number] Implanted:Qty: 1 on 10/24/2022 by Jayden Cancino MD at [facility] Left: Acetabulum [employer] [id number] 05/21/2031 [id number] / / [id number] Description:The implant type , laterality (when applicable), size, and expiration date have been visually and verbally confirmed by the Surgeon, Circulating RN and Scrub Personnel. Screw Bone 20x6.5mm Hip Cancellous Reflection Ss Spherical Head - [id number] Implanted:Qty: 1 on 10/24/2022 by Jayden Cancino MD at [facility] Left: Acetabulum [employer]OTE[employer] [id number] 03/31/2032 [id number] / / [id number] Screw Bone 6.5x40mm Hip Cancellous Reflection Ss Spherical Head - [id number] Implanted:Qty: 1 on 10/24/2022 by Jayden Cancino MD at [facility] Left: Acetabulum [employer]OTEO [id number] 08/02/2030 [id number] / / [id number] Description:The implant type , laterality (when applicable), size, and expiration date have been visually and verbally confirmed by the Surgeon, Circulating RN and Scrub Personnel. Screw Bone 30x6.5mm Hip Cancellous Spherical Head For Reflection System 16a Cs/1bx/1ea - [id number] Implanted:Qty: 1 on 10/24/2022 by Jayden Cancino MD at [facility] Left: Acetabulum TMIOTEO [id number] 07/04/2032 [id number] / / [id number] Description:The implant type , laterality (when applicable), size, and expiration date have been visually and verbally confirmed by the Surgeon, Circulating RN and Scrub Personnel. Screw Bone 6.5x25mm Hip Cancellous Spherical Hd For Reflection System 16a - [id number] Implanted:Qty: 1 on 10/24/2022 by Jayden Cancino MD at [facility] Left: Acetabulum [employer]OTEO [id number] 10/18/2031 [id number] / / [id number] Description:The implant type , laterality (when applicable), size, and expiration date have been visually and verbally confirmed by the Surgeon, Circulating RN and Scrub Personnel. Clip Hemostasis 16mm /5ea - [id number] Implanted:Qty: 1 on 03/29/2024 by Altagracia Verma MD at [facility] N/A: [id number] / / Procedures Procedure Name Priority Date/Time Associated Diagnosis Comments MRI SHOULDER WITHOUT CONTRAST (RIGHT) Routine 11/12/2024 8:40 AM EDT Primary osteoarthritis, right shoulder XR SHOULDER 2 VIEWS (RIGHT) Routine 10/14/2024 11:16 AM EDT Bilateral shoulder pain, unspecified chronicity XR SHOULDER 2 VIEWS (LEFT) Routine 10/14/2024 11:15 AM EDT Bilateral shoulder pain, unspecified chronicity COMPREHENSIVE METABOLIC PANEL Routine 10/14/2024 9:56 AM EDT Type 2 diabetes mellitus without complication, unspecified whether skilled nursing insulin use Pure hypercholesterolemia HEMOGLOBIN A1C Routine 10/14/2024 9:56 AM EDT Type 2 diabetes mellitus without complication, unspecified whether rodent exterminator insulin use Pure hypercholesterolemia CBC AND DIFFERENTIAL Routine 10/14/2024 9:56 AM EDT Type 2 diabetes mellitus without complication, unspecified whether skilled nursing insulin use Pure hypercholesterolemia LIPID PANEL Routine 10/14/2024 9:56 AM EDT Hypercholesterolemia ENDOSCOPY, COLON 03/18/2018 8:38 AM EST from Last 3 Months or Most Recently Relevant to Health Maintenance Results * MRI SHOULDER WITHOUT CONTRAST (RIGHT) [...] clinician's provided indication for this examination in [facility]: Outside Radiology Order; right shoulder pain TECHNIQUE: [...] clinician's provided indication for this examination in [facility]:Outside Radiology Order; right shoulder pain TECHNIQUE: Multi-sequence, [...] Mild acromioclavicular joint degenerative changes. Shannon RODRIGEZ IM MR EXTREMITY Final Resu lt * XR SHOULDER 2 VIEWS (RIGHT) (10/14/2024 11:16 AM EDT) Anatomical Region Laterality Modality Shoulder Right Computed Radiogr aphy 10/14/2024 6:20 PM EDT Narrative 10/14/2024 6:20 PM EDT XR SHOULDER 2 OR MORE VIEWS (RIGHT) Referring clinician's provided indication for this examination in Epic: Pain COMPARISON: April 08, 2017 FINDINGS: No fracture or dislocation. Moderate glenohumeral osteoarthritis and mild acromioclavicular osteoarthritis. The visualized portions of the lungs are clear. Procedure Note Jason Sharp MD, MICHELLE - 10/14/2024 XR SHOULDER 2 OR MORE VIEWS (RIGHT) Referring clinician's provided indication for this examination in [facility]:Pain COMPARISON: April 08, 2017 FINDINGS: No fracture or dislocation. Moderate glenohumeral osteoarthritis and mild acromioclavicularosteoarthritis. The visualized portions of the lungs are clear. Shannon Lofton PA IMG XR UPPER EXTREMITY Nataliya l Result * XR SHOULDER 2 VIEWS (LEFT) (10/14/2024 11:15 AM EDT) Anatomical Region Laterality Modality Shoulder Left Computed Radiogr aphy 10/14/2024 6:19 PM EDT Narrative 10/14/2024 6:19 PM EDT XR SHOULDER 2 OR MORE VIEWS (LEFT) Referring clinician's provided indication for this examination in [facility]: Outside Radiology Order; shoulder pain COMPARISON: April 08, 2017 FINDINGS: No fracture. Normal glenohumeral alignment Mild osteoporosis radius in the acromioclavicular and glenohumeral joints. The visualized portions of the lungs are clear. Procedure Note Jason Sharp MD, MICHELLE - 10/14/2024 XR SHOULDER 2 OR MORE VIEWS (LEFT) Referring clinician's provided indication for this examination in [facility]:Outside Radiology Order; shoulder pain COMPARISON: April 08, 2017 FINDINGS: No fracture. Normal glenohumeral alignment Mild osteoporosis radius in the acromioclavicular and glenohumeral joints.The visualized portions of the lungs are clear. Shannon Lofton PA IMG XR UPPER EXTREMITY Nataliya l Result * (ABNORMAL) Comprehensive metabolic panel (10/14/2024 9:56 AM EDT) SODIUM 137 133 - 146 mmol/L [facility] POTASSIUM 5.2(H) 3.3 - 5.1 mmol/L [facility] CHLORIDE 101 96 - 108 mmol/L [facility] CO2 28 21 - 35 mmol/L [facility] BUN 19 6 - 19 mg/dL [facility] CREATININE 0.70 0.5 - 1.5 mg/dL [facility] GLUCOSE 245(H) 70 - 99 mg/dL [facility] ALBUMIN 4.1 3.9 - 4.8 g/dL [facility] TOTAL PROTEIN 7.1 6.5 - 8.0 g/dL [facility] CALCIUM 9.4 8.4 - 10.3 mg/dL [facility] ALKALINE PHOSPHATASE 72 39 - 117 U/L [facility] TOTAL BILIRUBIN 0.6 0.0 - 1.2 mg/dL [facility] AST 30 0 - 37 U/L [facility] ALT 25 0 - 40 U/L [facility] GLOBULIN 3.0 1 - 4.8 g/dL [facility] EGFR 106 >59 mL/min/1.7 3m2 [facility] Comment:Estimated glomerular filtration rate calculated using the CKD-EPI refit equation. ANION GAP 13 10 - 20 mmol/L [facility] Blood 10/14/2024 9:56 AM EDT 10/14/2024 9:58 AM EDT us Shannon RODRIGEZ LAB BLOOD ORDERABLES Final Result [facility] [address] [place] [address] * (ABNORMAL) CBC and differential (10/14/2024 9:56 AM EDT) WBC 5.18 4.00 - 11.00 K/uL [facility] RBC 5.25 4.50 - 5.90 M/uL [facility] HGB 15.4 13.5 - 17.5 g/dL [facility] HCT 46.2 41.0 - 53.0 % [facility] PLT 147(L) 150 - 450 K/uL [facility] MCV 88.0 80.0 - 100.0 fL [facility] MCH 29.3 27.0 - 31.0 pg [facility] MCHC 33.3 32.0 - 36.0 g/dL [facility] RDW 12.8 11.5 - 14.5 % [facility] MPV 9.6 8.4 - 12.0 fL [facility] NRBC 0.00 0.00 /100 WBCs [facility] ABSOLUTE NRBC 0.00 0.00 K/uL [facility] DIFF METHOD Auto [facility] NEUTS 57.5 48.0 - 76.0 % [facility] LYMPHS 30.7 18.0 - 41.0 % [facility] MONOS 8.3 4.0 - 11.0 % [facility] EOS 2.7 0.0 - 5.0 % [facility] BASOS 0.6 0.0 - 1.5 % [facility] Granulocytes, immature (%) 0.2 0.0 - 0.9 % [facility] ABSOLUTE NEUTS 2.98 1.92 - 7.60 K/uL [facility] ABSOLUTE LYMPHS 1.59 0.72 - 4.10 K/uL [facility] ABSOLUTE MONOS 0.43 0.16 - 1.10 K/uL [facility] ABSOLUTE EOS 0.14 0.00 - 0.50 K/uL [facility] ABSOLUTE BASOS 0.03 0.00 - 0.15 K/uL [facility] Granulocytes, immature 0.01 0.00 - 0.09 K/uL [facility] Blood 10/14/2024 9:56 AM EDT 10/14/2024 9:58 AM EDT us Shannon RODRIGEZ LAB BLOOD ORDERABLES Final Result [facility] [address] [place] [address] * (ABNORMAL) Hemoglobin A1c (10/14/2024 9:56 AM EDT) HEMOGLOBIN A1C 9.4(H) 4.3 - 5.8 % [facility] Blood 10/14/2024 9:56 AM EDT 10/14/2024 9:59 AM EDT [facility] Archie RODRIGEZ LAB BLOOD ORDERABLES Final Result Performing Organization Address City/[facility]/ZIP Co de Phone Number [address] [address] * (ABNORMAL) Lipid panel (10/14/2024 9:56 AM EDT) HDL 51 mg/dL [facility] Comment: Interpretation <40 mg/dL: Low HDL cholesterol (major risk factor for CHD) Greater than or equal to 60 mg/dL: High HDL cholesterol ( negative risk factor for CHD) HDL - cholesterol is affected by a number of factors, e.g. smoking, excerise, hormones, sex and age. CHOLESTEROL 227 0 - 240 mg/dL [facility] TRIGLYCERIDES 89 30 - 160 mg/dL [facility] LDL 158(H) 50 - 129 mg/dL [facility] Comment: LDL levels in terms of risk for coronary heart disease: <100 mg/dL: Optimal 100-129 mg/dL: Near or above optimal 130-159 mg/dL: Borderline high 160-189 mg/dL: High >190 mg/dL: Very High CARDIAC RISK RATIO 4.5 3.4 - 5.0 [facility] Blood 10/14/2024 9:56 AM EDT 10/14/2024 9:58 AM EDT Shannon RODRIGEZ LAB BLOOD ORDERABLES Final Result Performing Organization Address City/[facility]/ZIP Co de Phone Number [address] [address] * ENDOSCOPY, COLON (03/18/2018 8:38 AM EST) Narrative Transcriptions Altagracia Verma MD - 03/18/2018 8:38 AM EST Patient Name: Rudy Mcdermott Attending MD:: ALTAGRACIA VERMA MD Procedure Date: 03/18/2018 8:38 AM Date of : 1965 Age: 52 Admit Type: Outpatient Gender: Male Room: [place] [address] Referring MD: RY ARANDA DO Exam Type: Colonoscopy Indications: Screening for colorectal malignant neoplasm, This isthe patient's first colonoscopy Medications: Monitored Anesthesia Care Procedure: Informed consent was obtained from the patient after discussion of the indications, limitations,alternatives, benefits, and risks of the procedure. Risksspecifically discussed include but are not limited to medication reactions, missed lesions, bleeding, perforation, orthe need for emergent surgery. Throughout the procedure, the patient's blood pressure, pulse, end-tidal CO2, and oxygen saturations were monitored continuously. The Olympus adult variable colonoscope CF-DN485F #2 was introduced through the anus and advanced to the cecum, identified by the appendiceal orifice, IC valve and transillumination. The colonoscopy was performedwithout difficulty. The patient tolerated the procedure well.The quality of the bowel preparation was good. Complications: No immediate complications. Estimated blood loss:Minimal. Findings: The perianal and digital rectal examinations werenormal. Pertinent negatives include normal sphincter tone. A 3 mm polyp was found at 45 cm proximal to the anus.The polyp was sessile. The polyp was removed with a cold snare. Resection and retrieval were complete. Estimated blood loss was minimal. The terminal ileum appeared normal. The exam was otherwise without abnormality on directand retroflexion views. Impression: - One 3 mm polyp at 45 cm proximal to the anus, removed with a cold snare. Resected and retrieved. - The examined portion of the ileum was normal. - The examination was otherwise normal on direct and retroflexion views. Recommendation: - I will send results of your biopsy to you and your referring physician or provider. If you do not receive notification within 3 weeks, please call our office. - Repeat colonoscopy in 5 years for surveillance basedon pathology results. - If the pathology report reveals adenomatous tissue,then repeat the colonoscopy for surveillance based onpathology results in 5 years. ALTAGRACIA VERMA MD 03/18/2018 8:57:58 AM This report has been signed electronically. Number of Addenda: 0 Note Initiated On: 03/18/2018 8:38 AM Procedure Code(s): --- Professional --- 21453, Colonoscopy, flexible; with removal of tumor(s), polyp(s), or other lesion(s) by snare technique --- Technical --- 12941, Colonoscopy, flexible; with removal of tumor(s), polyp(s), or other lesion(s) by snare technique Diagnosis Code(s): --- Professional --- Z12.11, Encounter for screening for malignant neoplasm of colon D12.6, Benign neoplasm of colon, unspecified --- Technical --- Z12.11, Encounter for screening for malignant neoplasm of colon D12.6, Benign neoplasm of colon, unspecified CPT copyright 2016 [employer]. All rights reserved. The codes documented in this report are preliminary and upon navy material inspector reviewmay be revised to meet current compliance requirements. [address] [place] [address] us Ry A Bigda DO GI PROCEDURE ORDERABLES Final Re sult from Last 3 Months or Most Recently Relevant to Health Maintenance Insurance [facility] Care Teams Pipe Installer Relationship Specialty Start Date End Date Ry Aranda DO [email or web address] PCP - General 01/19/17 Ry Aranda DO [address] [place] [id number] [email or web address] Insurance Assigned Provider 07/11/23 Additional Source Comments The information contained in this document represents components of the legal health record. It is not the complete legal health record.[facility]
--- OUTSIDE RECORDS SUMMARY | 2024-12-06 10:26 | XMS_ITS | Encounter Summary ---
Author Organization [facility] Address [address] [facility] [address] [place] [address] Phone Care Team Providers Care Nuclear Operator Name Role Phone ParishRamin skinner Primary Care Provider [phone] ParishRamin skinner Unavailable Encounter Details Date Type Department Care Team (Late st Contact Info) Description 07/08/2017 Transcribe Orders [facility] [address] [place] [address] Valerio Chinchilla DO [address] [facility], [address] [place] [address] [email or web address] Allergic urticaria (Primary Dx) Social History Tobacco Use Types Packs/Day Years Used Date Smoking Tobacco: Never Smokeless Tobacco: Never Sex and Gender Information Value Date Recorded Sex Assigned at Male 06/06/2017 6:47 PM EST Legal Sex Male 9:40 PM EDT Gender Identity Male 06/06/2017 6:47 PM EST Sexual Orientation Not on file documented as of this encounter Plan of Treatment Upcoming Encounters Date Type Department Care Team (Late st Contact Info) Description 04/09/2025 9:15 AM EST Appointment [facility], [facility] [address] [place] [address] Shannon Lofton PA [address] [facility] [place] [address] [place] [address] documented as of this encounter Results * Tryptase (07/08/2017 11:15 AM EDT) TRYPTASE 5.1 <11.5 ng/mL [facility] DPT OF LAB MED AND PAT+ Blood 07/08/2017 11:1 5 AM EDT 07/08/2017 11:22 AM EDT Valerio Chinchilla DO LAB BLOOD ORDERABLES Final R esult [facility] DPT OF LAB MED AND PAT+ [address] [place] [address] * (ABNORMAL) CBC and differential (07/08/2017 11:15 AM EDT) WBC 4.63 3.40 - 11.20 K/uL [facility] RBC 4.73 4.50 - 5.50 M/uL [facility] HGB 14.4 13.0 - 17.0 g/dL [facility] HCT 43.7 40.0 - 51.0 % [facility] PLT 105(L) 130 - 400 K/uL [facility] MCV 92.4 79.0 - 98.0 fL [facility] MCH 30.4 27.0 - 34.8 pg [facility] MCHC 33.0 31.5 - 36.0 g/dL [facility] RDW 12.8 10.8 - 14.6 % [facility] MPV 10.3 9.4 - 12.4 fl [facility] NRBC 0.00 /100 WBCs [facility] ABSOLUTE NRBC 0.00 K/uL [facility] DIFF METHOD Auto [facility] NEUTS 60.3 45.30 - 77.70 % [facility] LYMPHS 25.9 12.30 - 39.70 % [facility] MONOS 9.3 4.10 - 12.80 % [facility] EOS 3.9 0 - 7.2 % [facility] BASOS 0.4 0 - 2.80 % [facility] Granulocytes, immature (%) 0.2 0.0 - 0.9 % [facility] ABSOLUTE NEUTS 2.79 1.40 - 7.70 K/uL [facility] ABSOLUTE LYMPHS 1.20 0.60 - 3.20 K/uL [facility] ABSOLUTE MONOS 0.43 0.11 - 0.59 K/uL [facility] ABSOLUTE EOS 0.18 0.01 - 0.50 K/uL [facility] ABSOLUTE BASOS 0.02 0.00 - 0.08 K/uL [facility] Granulocytes, immature 0.01 0.00 - 0.05 K/uL [facility] Blood 07/08/2017 11:1 5 AM EDT 07/08/2017 11:23 AM EDT Valerio Chinchilla DO LAB BLOOD ORDERABLES Final R esult [facility] [address] [place] [address] * Comprehensive metabolic panel (07/08/2017 11:15 AM EDT) SODIUM 142 133 - 146 mmol/L [facility] POTASSIUM 4.7 3.3 - 5.1 mmol/L [facility] CHLORIDE 101 96 - 108 mmol/L [facility] CO2 28 21 - 35 mmol/L [facility] BUN 17 6 - 19 mg/dL [facility] CREATININE 0.60 0.5 - 1.5 mg/dL [facility] GLUCOSE 93 70 - 99 mg/dL [facility] ALBUMIN 4.0 3.9 - 4.8 g/dL [facility] TOTAL PROTEIN 6.7 6.5 - 8.0 g/dL [facility] CALCIUM 9.4 8.4 - 10.3 mg/dL [facility] ALKALINE PHOSPHATASE 60 39 - 117 U/L [facility] TOTAL BILIRUBIN 0.3 0.0 - 1.2 mg/dL [facility] AST 21 0 - 37 U/L [facility] ALT 33 0 - 40 U/L [facility] GLOBULIN 2.7 1 - 4.8 g/dL [facility] EGFR 116 >59 mL/min/1.7 3m2 [facility] Comment:If patient is black, multiply result by 1.159. The eGFR calculation has changed from the MDRD equation to the CKD-EPI equation as of June 09, 2017. ANION GAP 18 10 - 20 mmol/L [facility] Blood 07/08/2017 11:1 5 AM EDT 07/08/2017 11:23 AM EDT Valerio Chinchilla DO LAB BLOOD ORDERABLES Final R esult [facility] [address] [place] [address] documented in this encounter Visit Diagnoses Diagnosis Allergic urticaria- Primary documented in this encounter Care Teams Nuclear Operator Relationship Specialty Start Date End Date Ramin Neely DO PCP - General 01/19/17 Ramin Neely DO [address] [place] [address] Insurance Assigned Provider 07/11/23 documented as of this encounter Additional Source Comments The information contained in this document represents components of the legal health record. It is not the complete legal health record.[facility]
--- OUTSIDE RECORDS SUMMARY | 2024-12-06 10:26 | XMS_ITS | Encounter Summary ---
Author Organization [facility] Address [address] [place] [address] Phone Care Team Providers Care Air Route Traffic Controller Name Role Phone ParishRamin skinner Primary Care Provider [phone] ParishRamin skinner Unavailable Encounter Details Date Type Department Care Team (Late st Contact Info) Description 10/24/2022 Procedure Pass [facility] PERIOPERATIVE DEPT [address] [place] [address] Social History Tobacco Use Types Packs/Day Years [...] as food, clothing, or medical care? No 10/24/2022 In the past 12 months have y ou been in a relationship with a person who hurts, threatens, or tries to control you? No 10/24/2022 Are you denied basic needs s uch as food, clothing, or medical care? No 10/24/2022 In the past 12 months have y ou been in a relationship with a person who hurts, threatens, or tries to control you? No 10/24/2022 Sex and Gender Information Value Date Recorded Sex Assigned at Male 06/06/2017 6:47 PM EST Legal Sex Male 9:40 PM EDT Gender Identity Male 06/06/2017 6:47 PM EST Sexual Orientation Not on file documented as of this encounter Functional Status * Calculated C-SSRS Risk Score (Lifetime/Recent) Answer Date of Assessment Author No Risk Indicated 10/24/2022 8:00 PM EDT Nisa Miller RN * [place] Suicide Severity Rating Scale (Screener/Recent Self-Report) Question Answer Date of Assessment Author 1. Wish to be (Past 1 Month) No 10/24/2022 8:00 PM EDT Nisa Miller RN 2. Non-Specific Active Suicidal Thoughts (Past 1 Month) No 10/24/2022 8:00 PM EDT Nisa Miller RN 6. Suicidal Behavior (Lifetime) No 10/24/2022 8:00 PM EDT Nisa Miller RN documented as of this encounter Plan of Treatment Upcoming Encounters Date Type Department Care Team (Late st Contact Info) Description 04/09/2025 9:15 AM EST Appointment [address] [address] Shannon Lofton PA 6 [facility] [place] [address] documented as of this encounter Visit Diagnoses Not on filedocumented in this encounter Care Teams Air Route Traffic Controller Relationship Specialty Start Date End Date Ramin Neely DO PCP - General 01/19/17 Ramin Neely DO [address] [place] [address] [place] [address] Insurance Assigned Provider 07/11/23 documented as of this encounter Additional Source Comments The information contained in this document represents components of the legal health record. It is not the complete legal health record.[facility]
--- OUTSIDE RECORDS SUMMARY | 2024-12-06 10:26 | XMS_ITS | Encounter Summary ---
Author Organization [facility] Address [address] [facility] [address] [place] [address] Phone Care Team Providers Care Manufacturers Service Representative Name Role Phone Ramin Neely Primary Care Provider ParishRamin skinner Unavailable Encounter Details Date Type Department Care Team (Late st Contact Info) Description 10/14/2024 Ancillary Orders [facility], X-Ray - [facility] [address] [place] [address] Shannon Lofton PA 6 [facility] [place] [address] Bilateral shoulder pain, unspecified chronicity (Primary Dx) [...] Description 04/09/2025 9:15 AM EST Appointment [facility], Bone Density [address] [address] Shannon Lofton PA [address] [place] [address] documented as of this encounter Results * XR SHOULDER 2 VIEWS (RIGHT) (10/14/2024 [...] clinician's provided indication for this examination in Epic:Pain COMPARISON: April 08, 2017 FINDINGS: No fracture or dislocation. Moderate glenohumeral osteoarthritis and mild acromioclavicularosteoarthritis. The visualized portions of the lungs are clear. Shannon RODRIGEZ IMG XR UPPER EXTREMITY Nataliya l Result documented in this encounter Visit Diagnoses Diagnosis Bilateral shoulder pain, unspecified chronicity- Primary Bilateral shoulder pain, unspecified chronicity documented in this encounter Care Teams Manufacturers Service Representative Relationship Specialty Start Date End Date Ramin Neely DO PCP - General 01/19/17 Ramin Neely DO [address] [place] [address] Insurance Assigned Provider 07/11/23 documented as of this encounter Additional Source Comments The information contained in this document represents components of the legal health record. It is not the complete legal health record.[facility]
--- OUTSIDE RECORDS SUMMARY | 2024-12-06 10:26 | XMS_ITS | Encounter Summary ---
Author Organization [facility] Address [address] [place] [address] Phone Care Team Providers Care Museum Archivist Name Role Phone Ramin Neely Primary Care Provider [phone] Ramin Neely DO Unavailable Encounter Details Date Type Department Care Team (Late st Contact Info) Description 07/23/2018 Ancillary Orders [facility], X-Ray [address] [address] Maria Del Carmen Sifuentes, SALES AND SERVICE CONSULTANT [address] [place] [address] [email or web address] Cough Social History Tobacco Use Types Packs/Day Years [...] Info) Description 04/09/2025 9:15 AM EST Appointment [facility], Bone Density - [address] [address] Shannon Lofton PA [address] [place] [address] [place] [address] documented as of this encounter Results * XR CHEST PA AND LATERAL 2 VIEWS (07/23/2018 11:24 AM EDT) Anatomical Region Laterality Modality Chest Radiographic Michelle ging 07/23/2018 11:3 3 AM EDT Impressions 07/23/2018 11:35 AM EDT No acute cardiopulmonary process. POS - [id number] Narrative 07/23/2018 11:35 AM EDT EXAM: XR CHEST PA AND LATERAL 2 VIEWS COMPARISON: June 19, 2015 FINDINGS: No confluent lung consolidations or lung masses. No pneumothorax or pleural effusion. No pulmonary vascular congestion. Cardiomediastinal silhouette is within normal limits. Osseous structures are grossly intact. Procedure Note Colette Owens MD - 07/23/2018 EXAM: XR CHEST PA AND LATERAL 2 VIEWS COMPARISON: June 19, 2015 FINDINGS: No confluent lung consolidations or lung masses. No pneumothorax orpleural effusion. No pulmonary vascular congestion. Cardiomediastinalsilhouette is within normal limits. Osseous structures are grosslyintact. IMPRESSION: No acute cardiopulmonary process. POS - [id number] Maria Del Carmen Sifuentes SALES AND SERVICE CONSULTANT IMG XR CHEST Final Resul t documented in this encounter Visit Diagnoses Diagnosis Cough Cough documented in this encounter Care Teams Museum Archivist Relationship Specialty Start Date End Date Ramin Neely DO PCP - General 01/19/17 Ramin Neely DO [address] [facility] [place] [address] [email or web address] Insurance Assigned Provider 07/11/23 documented as of this encounter Additional Source Comments The information contained in this document represents components of the legal health record. It is not the complete legal health record.[facility]
--- OUTSIDE RECORDS SUMMARY | 2024-12-06 10:26 | XMS_ITS | Encounter Summary ---
Author Organization [facility] Address [address] [facility] [address] [place] [address] Phone Care Team Providers Care Choir Teacher Name Role Phone Ramin Neely Primary Care Provider [phone] ParishRamin skinner Unavailable Encounter Details Date Type Department Care Team (Latest Contact Info) Description 10/05/2024 Transcribe Orders Virtual Department [address] [place] [address] Shannon Lofton PA 6 [facility] [place] [address] Bilateral shoulder pain, unspecified chronicity (Primary Dx); Age-related osteoporosis without current pathological fracture Social History Tobacco Use Types Packs/Day Years [...] Info) Description 04/09/2025 9:15 AM EST Appointment [facility], Bone Density [address] [address] Shannon Lofton PA 6 [facility] [place] [address] Scheduled Orders Name Type Priority Associated Diagnoses Orde r Schedule DXA Screening Imaging Routine Age-related osteoporosis without current pathological fracture Expected: 11/17/2024, Expires: 10/18/2025 documented as of this encounter Visit Diagnoses Diagnosis Bilateral shoulder pain, unspecified chronicity- Primary Age-related osteoporosis without current pathological fracture documented in this encounter Care Teams Choir Teacher Relationship Specialty Start Date End Date Ramin Neely DO PCP - General 01/19/17 Ramin Neely DO [address] [facility] [place] [address] Insurance Assigned Provider 07/11/23 documented as of this encounter Additional Source Comments The information contained in this document represents components of the legal health record. It is not the complete legal health record.[facility]
--- OUTSIDE RECORDS SUMMARY | 2024-12-06 10:26 | XMS_ITS | Encounter Summary ---
Author Organization [facility] Address [address] [place] [address] Phone Care Team Providers Care Retail Sales Merchandiser Development Name Role Phone Ramin Neely DO Primary Care Provider [phone] Ramin Neely DO Unavailable Reason for Referral * Outpatient Procedure - Closed Specialty Diagnoses / Procedures Referred By Jeremi hilton Referred To Contact Diagnoses Chest pain, unspecified type Procedures Stress Test Exercise Ramin Neely DO Phone: tel: fax: [email or web address] Referral ID Status Reason Start Date Expiration Date Visits Re quested Visits Authorized [id number] Closed 06/01/2018 06/01/2019 1 1 Encounter Details Date Type Department Care Team (Late st Contact Info) Description 06/01/2018 Ancillary Orders Virtual Department [address] [place] [address] Ramin Neely DO [address] [facility] [place] [address] [email or web address] Chest pain, unspecified type Social History Tobacco Use Types Packs/Day [...] Info) Description 04/09/2025 9:15 AM EST Appointment [facility], Bone Density - [facility] [address] [place] [address] Shannon Lofton PA [address] [place] [address] documented as of this encounter Results * Stress Test Exercise (06/07/2018 11:36 AM EST) Max BP Systolic 150 mmHg [facility] Max BP Diastolic 80 mmHg [facility] Max HR 171 BPM [facility] Resting HR 115 BPM [facility] Resting BP Systolic 144 mmHg [facility] Resting BP Diastolic 90 mmHg [facility] Peak METS 9.9 METS [facility] Peak HR 171 BPM [facility] Peak BP Systolic 144 mmHg [facility] Peak BP Diastolic 74 mmHg [facility] Anatomical Region Laterality Modality Heart Other 06/07/2018 10:4 8 AM EST 06/07/2018 11:39 AM EST Narrative 06/07/2018 1:55 PM EST There was no electrocardiographic evidence of myocardial ischemia at a diagnostic workload. Clinically, this is low risk study. Stress Findings There was no evidence of myocardial ischemia at a diagnostic workload. Clinically, this is a low risk study. Response to Stress The patient exercised for minutes seconds, achieving 9.9 METS at peak exercise. Baseline blood pressure was 144/90 mmHg, and baseline heart rate was 115 bpm. Peak blood pressure was 144/74 mmHg. The patient achieved a peak heart rate of 171 bpm, which is% of their maximum predicted heart rate. Rate pressure product was [address]. Pt exercised for 9 min on a RUDY protocol achieving 10.10 METS. TEst terminated due to fatigue. Baseline resting HR was 93. Max heart rate achieved was 171 (101% MPHR). 1. EKG - Baseline EKG showed normal sinus rhythm. No ischemic EKG changes with exercise. 2. SYMPTOMS - no chest pain 3. EXERCISE PHYSIOLOGY - normal BP response to exercise. Good functional capacity for age. 4. ARRHYTHMIAS - few PVCs. 5. KINGSLEY TREADMILL SCORE - 9 (low risk of cardiac events) Conclusion - no EKG evidence of ischemia. Tamara Noel SPLICING SUPERVISOR with Dr Benavidez . us Ramin Neely DO CV STRESS ORDERABLES Final Resul t documented in this encounter Visit Diagnoses Diagnosis Chest pain, unspecified type Chest pain, unspecified type documented in this encounter Care Teams Retail Sales Merchandiser Development Relationship Specialty Start Date End Date Ramin Neely DO [email or web address] PCP - General 01/19/17 Ramin Neely DO [address] [place] [address] [email or web address] Insurance Assigned Provider 07/11/23 documented as of this encounter Additional Source Comments The information contained in this document represents components of the legal health record. It is not the complete legal health record.[facility]
--- OUTSIDE RECORDS SUMMARY | 2024-12-06 10:26 | XMS_ITS | Encounter Summary ---
Author Organization [facility] Address [address] [place] [address] Care Team Providers Care Corporate Paralegal Name Role Phone Ramin Neely DO Primary Care Provider [phone] Encounter Details Date Type Department Care Team (Late st Contact Info) Description 06/22/2024 Lab Requisition [facility] - Main Lab [address] [address] [place] [address] Bruce Bruno MD [address] [facility] [address] [place] [address] Elevated prostate specific antigen (PSA) Social History Tobacco Use Types Packs/Day Years Used Date Smoking Tobacco: Never Assessed Sex and Gender Information Value Date Recorded Sex Assigned at Not on file Legal Sex Male 1:44 AM EST Gender Identity Not on file Sexual Orientation Not on file documented as of this encounter Plan of Treatment Not on file documented as of this encounter Procedures Procedure Name Priority Date/Time Associated Diagnosis Comments AP OUTSIDE CONSULT Routine 06/21/2024 Elevated prostate specific antigen (PSA) documented in this encounter Results * Anatomic pathology outside consult (06/21/2024) Final Diagnosis A. Prostate, Right Medial Base Biopsy: -BENIGN PROSTATE TISSUE B. Prostate, Right Medial Mid Biopsy: -BENIGN PROSTATE TISSUE C. Prostate, Right Medial Lee Biopsy: -BENIGN PROSTATE TISSUE D. Prostate, Right Lateral Base Biopsy: -BENIGN PROSTATE TISSUE -Stroma only E. Prostate, Right Lateral Mid Biopsy: -BENIGN PROSTATE TISSUE F. Prostate, Right Lateral Lee Biopsy: -BENIGN PROSTATE TISSUE -Mostly stroma G. Prostate, Left Medial Base Biopsy: -BENIGN PROSTATE TISSUE -Mostly stroma H. Prostate, Left Medial Mid Biopsy: -BENIGN PROSTATE TISSUE I. Prostate, Left Medial Lee Biopsy: -BENIGN PROSTATE TISSUE J. Prostate, Left Lateral Base Biopsy: -BENIGN PROSTATE TISSUE K. Prostate, Left Lateral Mid Biopsy: -BENIGN PROSTATE TISSUE -Mostly stroma L. Prostate, Left Lateral Lee Biopsy: -BENIGN PROSTATE TISSUE -Mostly stroma 06/27/2024 1:47 PM EDT [facility] Clinical Information Elevated PSA PSA: 0.52 PB25-78 06/27/2024 1:47 PM EDT [facility] Gross Description A. Prostate, Right Medial Base Biopsy: Labeled Right Medial Base . Received in formalin is a soft, walter core of tissue, measuring 1.0cm in length and 0.1cm in diameter. The specimen is submitted in toto in one cassette, one piece. X6/PV . B. Prostate, Right Medial Mid Biopsy: Labeled Right Medial Mid . Received in formalin is a soft, walter core of tissue, measuring 1.2cm in length and 0.1cm in diameter. The specimen is submitted in toto in one cassette, one piece. X6/PV C. Prostate, Right Medial Lee Biopsy: Labeled Right Medial Lee . Received in formalin is a soft, walter core of tissue, measuring 1.5cm in length and 0.1cm in diameter. The specimen is submitted in toto in one cassette, one piece. X6/PV D. Prostate, Right Lateral Base Biopsy: Labeled Right Lateral Base . Received in formalin is a soft, walter core of tissue, measuring 1.1cm in length and 0.1cm in diameter. The specimen is submitted in toto in one cassette, one piece. X6/PV E. Prostate, Right Lateral Mid Biopsy: Labeled Right Lateral Mid . Received in formalin is a soft, walter core of tissue, measuring 1.5cm in length and 0.1cm in diameter. The specimen is submitted in toto in one cassette, one piece. X6/PV F. Prostate, Right Lateral Lee Biopsy: Labeled Right Lateral Lee . Received in formalin is a soft, walter core of tissue, measuring 1.4cm in length and 0.1cm in diameter. The specimen is submitted in toto in one cassette, one piece. X6/PV G. Prostate, Left Medial Base Biopsy: Labeled Left Medial Base . Received in formalin is a soft, walter core of tissue, measuring 2.6cm in length and 0.1cm in diameter. The specimen is submitted in toto in one cassette, one piece. X6/PV H. Prostate, Left Medial Mid Biopsy: Labeled Left Medial Mid . Received in formalin is a soft, walter core of tissue, measuring 2.4cm in length and 0.1cm in diameter. The specimen is submitted in toto in one cassette, one piece. X6/PV I. Prostate, Left Medial Lee Biopsy: Labeled Left Medial Lee . Received in formalin is a soft, walter core of tissue, measuring 2.0cm in length and 0.1cm in diameter. The specimen is submitted in toto in one cassette, one piece. X6/PV J. Prostate, Left Lateral Base Biopsy: Labeled Left Lateral Base . Received in formalin is a soft, walter core of tissue, measuring 1.9cm in length and 0.1cm in diameter. The specimen is submitted in toto in one cassette, one piece. X6/PV K. Prostate, Left Lateral Mid Biopsy: Labeled Left Lateral Mid . Received in formalin is a soft, walter core of tissue, measuring 1.9cm in length and 0.1cm in diameter. The specimen is submitted in toto in one cassette, one piece. X6/PV L. Prostate, Left Lateral Lee Biopsy: Labeled Left Lateral Lee . Received in formalin is a soft, walter core of tissue, measuring 1.7cm in length and 0.1cm in diameter. The specimen is submitted in toto in one cassette, one piece. X6/PV 06/27/2024 1:47 PM EDT [facility] Disclaimer Unless otherwise specified, all tissue is 10% NB formalin fixed and paraffin embedded. Technical pathology services provided by [facility] at [address] [place] [address] (CLIA #[id number]/ Nigel Muro MD, Library Clerk [employer]) 06/27/2024 1:47 PM EDT [facility] Tissue Prostate / Unknown 06/21/20242024 4:15 PM EDT Tissue specimen (specimen) Prostate / Unknown 06/21/2024 06/22/2024 4: 21 PM EDT Tissue specimen (specimen) Prostate / Unknown 06/21/2024 06/22/2024 4: 21 PM EDT Tissue specimen (specimen) Prostate / Unknown 06/21/2024 06/22/2024 4: 21 PM EDT Tissue specimen (specimen) Prostate / Unknown 06/21/2024 06/22/2024 4: 21 PM EDT Tissue specimen (specimen) Prostate / Unknown 06/21/2024 06/22/2024 4: 21 PM EDT Tissue specimen (specimen) Prostate / Unknown 06/21/2024 06/22/2024 4: 21 PM EDT Tissue specimen (specimen) Prostate / Unknown 06/21/2024 06/22/2024 4: 21 PM EDT Tissue specimen (specimen) Prostate / Unknown 06/21/2024 06/22/2024 4: 21 PM EDT Tissue specimen (specimen) Prostate / Unknown 06/21/2024 06/22/2024 4: 21 PM EDT Tissue specimen (specimen) Prostate / Unknown 06/21/2024 06/22/2024 4: 21 PM EDT Tissue specimen (specimen) Prostate / Unknown 06/21/2024 06/22/2024 4: 21 PM EDT us Bruce Bruno MD LAB PATHOLOGY ORDERABLES Final R esult [facility] [address] [place] [address], documented in this encounter Visit Diagnoses Diagnosis Elevated prostate specific antigen (PSA) documented in this encounter Care Teams Corporate Paralegal Relationship Specialty Start Date End Date Ramin Neely DO [address] [facility] [address] [place], [place] PCP - General Internal Medicine 06/22/24 documented as of this encounter
--- OUTSIDE RECORDS SUMMARY | 2024-12-06 10:26 | XMS_ITS | Patient Health Record ---
Author Organization [facility] Address [address] [place] [address] Care Team Providers Care Elevator Tender Name Role Phone Ramin Neely MD Primary Care Provider Christoph Raza [phone] Allergies Allergen (clinical drug ingredient) Drug/Non Drug Allergy documented on EMR Reaction Allergy Type Onset Date Status Penicillin (uncoded) Unknown Allergy Active Tree Nuts (uncoded) anaphylaxis Allergy Active amoxicillin Amoxicillin Unknown Drug Allergy Act tanisha Reason For Referral No Information Medications Medication SIG (Take, Route, Frequency, Duration) Notes Start Date End Date Status Leyda Allergy 180 MG 1 tablet as neede d Orally Once a day; Duration: 30 day(s) Active EpiPen Active Feldene 20 MG 1 capsule with food Orally Once a day; Duration: 30 day(s) Active rOPINIRole HCl 5 MG 1 tablet Orally Thre e times a day; Duration: 30 day(s) Activ e metFORMIN HCl 500 MG 1 tablet with a ajay l Orally Once a day; Duration: 30 day(s) Active Night Splint AFO - L1930 as directed 02/21/2019 Active Immunizations Vaccine Route Administration Date Status Comme nts Influenza Unknown 03/28/2019 Administered Social History Tobacco Use: Social History Observation Description Date Details (start date - stop date) Former Smoker NA - NA Tobacco Use/Smoking Question Answer Notes Are you a: former smoker Additional Findings: Tobacco Non-User Cu rrent non-smoker, but past smoking history unknown Alcohol Screen Question Answer Notes Did you have a drink containing alcohol in the p ast year? Yes Points 0 Interpretation Negative Tobacco use other than smoking: Question Answer Notes Are you an other tobacco user? No Plan Of Treatment Pending Test Test Name Order Date X ray : Foot, right 3V 02/21/2019 [id number] TENDON SHEATH/LIGAMENT 0 05/20/2019 Insurance Providers Payer Name Payer Address Payer Phone Subscriber Number Group Number Insured Name Patient Relationship to Insured Coverage Start Date Coverage End Date [facility] [address] [place] [address] [id number] Rudy Castro Self - patient is the insured Medical (General) History Medical History History ICD Code Arthritis Back,Hip,and Knee pain Joint implants/screws Pre diabetic Surgical History Surgery Date(Month/Year) right hip replacement
--- OUTSIDE RECORDS SUMMARY | 2024-12-06 10:26 | XMS_ITS | Encounter Summary ---
Author Organization [facility] Address [address] [facility] [address] [place] [address] Phone Care Team Providers Care Rn Lactation Name Role Phone Ramin Neely Primary Care Provider [phone] ParishRamin skinner Unavailable Encounter Details Date Type Department Care Team ([facility] Contact Info) Description 10/24/2022 Ancillary Orders [facility] [address] [facility] [place] [address] Jayden Cancino MD [address] [facility], [facility] [address] [place] [address] [email or web address] Pain Social History Tobacco Use Types Packs/Day Years [...] 8:00 PM EDT Nisa Miller RN * [place] Suicide Severity Rating Scale (Screener/Recent Self-Report) Question Answer Date of Assessment Author 1. Wish to be (Past 1 Month) No 10/24/2022 8:00 PM EDT Nisa Miller RN 2. Non-Specific Active Suicidal Thoughts (Past 1 Month) No 10/24/2022 8:00 PM EDT Nisa Miller RN 6. Suicidal Behavior (Lifetime) No 10/24/2022 8:00 PM EDT Nias Miller RN documented as of this encounter Plan of Treatment Upcoming Encounters Date Type Department Care Team (Late st Contact Info) Description 04/09/2025 9:15 AM EST Appointment [address] [address] Shannon Lofton PA [address] [facility] [place] [address] documented as of this encounter Results * FL Fluoroscopy (10/24/2022 5:08 PM EDT) Narrative [facility] IM[facility] INTERFACES - 10/24/2022 5:08 PM EDT Fluoroscopy was provided during this procedure. us Jayden FLAHERTY [place] MISC Final Re sult [facility] IMG INTERFACES documented in this encounter Visit Diagnoses Diagnosis Pain Generalized pain Pain Generalized pain documented in this encounter Care Teams Rn Lactation Relationship Specialty Start Date End Date Ramin Neely DO PCP - General 01/19/17 Ramin Neely DO [address] [place] [address] [email or web address] Insurance Assigned Provider 07/11/23 documented as of this encounter Additional Source Comments The information contained in this document represents components of the legal health record. It is not the complete legal health record.[facility]
--- OUTSIDE RECORDS SUMMARY | 2024-12-06 10:26 | XMS_ITS | Encounter Summary ---
Author Organization [facility] Address [address] [place] [address] [place] [address] Phone Care Team Providers Care Team Leader/Research Psychologist Name Role Phone Ramin Neely DO Primary Care Provider [phone] Ramin Neely DO Unavailable Encounter Details Date Type Department Care Team (Late st Contact Info) Description 04/18/2020 Transcribe Orders Virtual Department [address] [place] [address] Ramin Neely DO [address] [facility] [address] [place], [place] [id number] [email or web address] Unilateral primary osteoarthritis, left hip (Primary Dx) Social History Tobacco Use Types [...] Info) Description 04/09/2025 9:15 AM EST Appointment [facility], Bone [facility] [address] [place] [address] Shannon Lofton PA [address] [place] [address] [address] [place], [place] [phone] documented as of this encounter Results * XR HIP 2 VW LEFT PLUS PELVIS (04/24/2020 4:11 PM EST) Anatomical Region Laterality Modality Hip Left Computed Radiogr aphy 04/24/2020 4:42 PM EST Impressions 04/24/2020 4:44 PM EST Minimal progression of chronic degenerative arthritis of the left hip since 11/22/2018. No acute pathology. POS [id number] Narrative 04/24/2020 4:44 PM EST AP pelvis and coned left hip, 3 views Compare 11/22/2018. Chronic concentric, severe joint space narrowing in the left hip has minimally progressed since 2019. Small marginal osteophytes and subchondral cysts on both sides of the joint seem unchanged. No specific signs of AVN, tumor or infection. No significant soft tissue calcifications. Previous right total hip replacement seems intact as do the SI joints and symphysis pubis. Procedure Note Onur Warren MD - 04/24/2020 AP pelvis and coned left hip, 3 views Compare 11/22/2018. Chronic concentric, severe joint space narrowing in the left hip hasminimally progressed since 2019. Small marginal osteophytes and subchondral cysts on both sides of thejoint seem unchanged. No specific signs of AVN, tumor or infection. No significant soft tissue calcifications. Previous right total hip replacement seems intact as do the SI joints andsymphysis pubis. IMPRESSION: Minimal progression of chronic degenerative arthritis of the left hipsince 11/22/2018. No acute pathology. POS [id number] Ramin Neely DO IMG XR PELVIS Final Result documented in this encounter Visit Diagnoses Diagnosis Unilateral primary osteoarthritis, left hip- Primary Unilateral primary osteoarthritis, left hip documented in this encounter Care Teams Team Leader/Research Psychologist Relationship Specialty Start Date End Date Ramin Neely DO [email or web address] PCP - General 01/19/17 Ramin Neely DO [address] [place] [address] [email or web address] Insurance Assigned Provider 07/11/23 documented as of this encounter Additional Source Comments The information contained in this document represents components of the legal health record. It is not the complete legal health record.[facility]
--- OUTSIDE RECORDS SUMMARY | 2024-12-06 10:26 | XMS_ITS | Encounter Summary ---
Author Organization [facility] Address [address] [place] [address] Phone Care Team Providers Care Banking Management Consulting Manager Name Role Phone Ramin Neely Primary Care Provider [phone] ParishRamin skinner DO Unavailable Encounter Details Date Type Department Care Team (Late Contact Info) Description 06/15/2017 Ancillary Orders [address] [address] Nicole Sofia MD [address] [place] [address] Orthopedics & Sports Medicine, [place], [place] [phone] [email or web address] Left hip pain; Right hip pain Social History Tobacco Use Types Packs/Day Years [...] Info) Description 04/09/2025 9:15 AM EST Appointment [facility], Bone [address] [address] Shannon Lofton PA [address] [place] [address] [place] [address] Pending Results Name Type Priority Associated Diagnoses Date /Time FL Guidance Needle Placement Non-Spine Imaging Routine Left hip pain Right hip pain 06/16/2017 8:58 AM EDT Scheduled Orders Name Type Priority Associated Diagnoses Orde r Schedule FL Guidance Needle Placement Non-Spine Imaging Routine Left hip pain Right hip pain Expected: 06/15/2017, Expires: 06/15/2018 documented as of this encounter Visit Diagnoses Diagnosis Left hip pain Pain in joint, pelvic region and thigh Right hip pain Pain in joint, pelvic region and thigh documented in this encounter Care Teams Banking Management Consulting Manager Relationship Specialty Start Date End Date Ramin Neely DO PCP - General 01/19/17 Ramin Neely DO [address] [place] [address] Insurance Assigned Provider 07/11/23 documented as of this encounter Additional Source Comments The information contained in this document represents components of the legal health record. It is not the complete legal health record.[facility]
--- OUTSIDE RECORDS SUMMARY | 2024-12-06 10:26 | XMS_ITS | Encounter Summary ---
Author Organization [facility] Address [address] [place] [address] Phone Care Team Providers Care Log Rafter Name Role Phone Ramin Neely Primary Care Provider [phone] ParishRamin skinner Unavailable Encounter Details Date Type Department Care Team (Late st Contact Info) Description 06/15/2017 Ancillary Orders [facility] Medicine [address] [place] [address] Nicole Sofia MD [address] [place] [address] Orthopedics & Sports Medicine, [place] [address] [email or web address] Social History Tobacco Use Types Packs/Day Years [...] Info) Description 04/09/2025 9:15 AM EST Appointment [facility], [address] [address] Shannon Lofton PA [address] [facility] [place] [address] documented as of this encounter Visit Diagnoses Not on filedocumented in this encounter Care Teams Log Rafter Relationship Specialty Start Date End Date Ramin Neely DO [email or web address] PCP - General 01/19/17 Ramin Neely DO [address] [place] [address] Insurance Assigned Provider 07/11/23 documented as of this encounter Additional Source Comments The information contained in this document represents components of the legal health record. It is not the complete legal health record.[facility]
--- OUTSIDE RECORDS SUMMARY | 2024-12-06 10:27 | XMS_ITS | Encounter Summary ---
Author Organization [facility] Address [address] [facility] [address] [place] [address] Phone Care Team Providers Care Public Transit Bus Driver Name Role Phone Ramin Neely Primary Care Provider [phone] ParishRamin skinner DO Unavailable Encounter Details Date Type Department Care Team (Late st Contact Info) Description 04/07/2024 Ancillary Orders Virtual Department [address] [place] [address] Steph Grissom NP [address] [place] [address] Nausea (Primary Dx); Bloating; RUQ abdominal pain Social History Tobacco Use Types Packs/Day [...] Info) Description 04/09/2025 9:15 AM EST Appointment [facility], Bone [address] [address] Shannon Lofton PA [address] [facility] [place] [address] documented as of this encounter Visit Diagnoses Diagnosis Nausea- Primary Nausea alone Bloating Flatulence, eructation, and gas pain RUQ abdominal pain Abdominal pain, right upper quadrant documented in this encounter Care Teams Public Transit Bus Driver Relationship Specialty Start Date End Date Ramin Neely DO PCP - General 01/19/17 Ramin Neely DO [address] [facility] [address] Insurance Assigned Provider 07/11/23 documented as of this encounter Additional Source Comments The information contained in this document represents components of the legal health record. It is not the complete legal health record.[facility]
--- OUTSIDE RECORDS SUMMARY | 2024-12-06 10:27 | XMS_ITS | Encounter Summary ---
Author Organization [facility] Address [address] [place] [address] Phone Care Team Providers Care Supplier Quality Specialist Name Role Phone Ramin Neely DO Primary Care Provider [phone] Ramin Neely DO Unavailable Encounter Details Date Type Department Care Team (Late st Contact Info) Description 07/23/2018 Ancillary Orders [facility], X-Ray [address] [address] Ramin Neely DO [address] [facility] [address] [email or web address] Social History Tobacco Use Types Packs/Day Years [...] Info) Description 04/09/2025 9:15 AM EST Appointment [facility], Bone [facility] - [address] [address] Shannon Lofton PA [address] [facility] [address] [place], [place] [phone] documented as of this encounter Visit Diagnoses Not on filedocumented in this encounter Care Teams Supplier Quality Specialist Relationship Specialty Start Date End Date Ramin Neely DO PCP - General 01/19/17 Ramin Neely DO [address] [place] [address] Insurance Assigned Provider 07/11/23 documented as of this encounter Additional Source Comments The information contained in this document represents components of the legal health record. It is not the complete legal health record.[facility]
--- OUTSIDE RECORDS SUMMARY | 2024-12-06 10:27 | XMS_ITS | Clinical Summary ---
Author Organization [address] [facility] Address [address] [place] [address] Phone Care Team Providers Care Personal Financial Representative Name Role Phone Ramin Neely Primary Care Provider [phone] Social History Tobacco Use Types Packs/Day Years Used Date Smoking Tobacco: Never Assessed Sex and Gender Information Value Date Recorded Sex Assigned at Not on file Legal Sex Male 1:44 AM EST Gender Identity Not on file Sexual Orientation Not on file Plan of Treatment Health Maintenance Due Date Last Done Comments DTaP,Tdap,and Td Vaccines (1 - Tdap) 1984 Hepatitis B Vaccines (1 of 3 - 19+ 3-dose series) 1984 Pneumococcal Vaccine: 50+ Ye ars (1 of 1 - PCV) 09/02/2015 Zoster Vaccines (1 of 2) 09/02/2015 Depression Screening 04/06/2024 Cholesterol Screening (Lipid Panel) 06/23/2024 Colorectal Cancer Screening: Colonoscopy 06/23/2024 HIV Screening 06/23/2024 Hepatitis C Screening 06/23/2024 Social Influencers of Health Screening 06/23/2024 COVID-19 Vaccine ( - 2023-2 5 season) 2024 Influenza Vaccine (#1) 2024 RSV Immunization Adult Patie nts (1 - 1-dose 75+ series) 2040 HIB Vaccines Aged Out No longer eligi ble based on patient's age to complete this topic HPV Vaccines Aged Out No longer eligi ble based on patient's age to complete this topic Hepatitis A Vaccines Aged Out No long er eligible based on patient's age to complete this topic IPV Vaccines Aged Out No longer eligi ble based on patient's age to complete this topic MMR Vaccines Aged Out No longer eligi ble based on patient's age to complete this topic Meningococcal ACWY Vaccine Aged Out N o longer eligible based on patient's age to complete this topic Meningococcal B Vaccine Aged Out No l onger eligible based on patient's age to complete this topic RSV Immunization Patients Un néstor 20 months Aged Out No longer eligible b ased on patient's age to complete this topic Varicella Vaccines Aged Out No longer eligible based on patient's age to complete this topic Insurance [facility] Care Teams Personal Financial Representative Relationship Specialty Start Date End Date Ramin Neely DO [address] [facility] [address] [place], [place] PCP - General Internal Medicine 06/22/24
--- OUTSIDE RECORDS SUMMARY | 2024-12-06 10:27 | XMS_ITS | Encounter Summary ---
Author Organization [facility] Address [address] [place] [phone] Phone Care Team Providers Care Structural Test Engineer Name Role Phone Ramin Neely DO Primary Care Provider [phone] Ramin Neely DO Unavailable Encounter Details Date Type Department Care Team (Late Contact Info) Description 03/18/2018 Procedure Pass [facility] Endoscopy Admitting Dept Virtual Department [address] [place] [address] Social History Tobacco Use Types Packs/Day Years [...] Info) Description 04/09/2025 9:15 AM EST Appointment [facility], [facility] [address] [place] [address] Shannon Lofton PA [address] [place] [address] [place] [address] documented as of this encounter Visit Diagnoses Not on filedocumented in this encounter Care Teams Structural Test Engineer Relationship Specialty Start Date End Date Ramin Neely DO [email or web address] PCP - General 01/19/17 Ramin Neely DO [address] [place] [address] [email or web address] Insurance Assigned Provider 07/11/23 documented as of this encounter Additional Source Comments The information contained in this document represents components of the legal health record. It is not the complete legal health record.[facility]
--- OUTSIDE RECORDS SUMMARY | 2024-12-06 10:27 | XMS_ITS | Encounter Summary ---
Author Organization [facility] Address [address] [place] [address] Phone Care Team Providers Care Landscape Account Manager Name Role Phone Ramin Neely DO Primary Care Provider [phone] Ramin Neely DO Unavailable Reason for Referral * Hospital - Outpatient - Closed Specialty Diagnoses / Procedures Referred By Jeremi hilton Referred To Contact Radiology Diagnoses Nausea Bloating RUQ abdominal pain Procedures NM Gallbladder Ejection Fraction NM Cholescintigraphy with Pharmacological Intervention NM Cholescintigraphy without Pharmacological Intervention Steph Grissom NP [address] [place] [address] Phone: tel: fax: Referral ID Status Reason Start Date Expiration Date Visits Re quested Visits Authorized [id number] Closed 03/07/2024 03/07/2025 1 1 Encounter Details Date Type Department Care Team (Late st Contact Info) Description 04/08/2024 Ancillary Orders Virtual Department [address] [place] [address] Steph Grissom NP [address] [place] [address] Nausea (Primary Dx); Bloating; RUQ abdominal pain [...] Info) Description 04/09/2025 9:15 AM EST Appointment [facility], [facility] [address] [address] Shannon Lofton PA 6 [facility] [place] [address] documented as of this encounter Results * NM Gallbladder Ejection Fraction (04/07/2024 11:22 AM EST) Anatomical Region Laterality Modality Abdomen, Biliary Nuclear Medicin e Impressions 04/07/2024 12:05 PM EST No evidence of biliary obstruction. Ejection fraction within normal limits, 48% at 30 minutes following injection of sincalide. ATTESTATION: I, Dr. Lynn Summers as teaching physician, have reviewed the images for this case and if necessary edited the report originally created by Jose Montgomery. Narrative 04/07/2024 12:05 PM EST NM CHOLESCINTIGRAPHY WITH PHARMACOLOGICAL INTERVENTION Radionuclide Hepatobiliary scan: COMPARISON: No scintigraphic study available for comparison. TECHNIQUE: 3.0 mCi technetium 99m mebrofenin was injected. Continuous imaging of the abdomen was performed before 60 minutes. 2.54 mcg of sincalide was subsequently injected and scanning was extended for 30 minutes to evaluate ejection fraction. FINDINGS: There is prompt uptake of radiotracer within the gallbladder followed by normal excretion into the small bowel. The observed ejection fraction after sincalide injection was 48% at 30 minutes. us Provider Not In System PhD IMG NM ABDOMEN Edite d Result - Final documented in this encounter Visit Diagnoses Diagnosis Nausea Nausea alone Bloating Flatulence, eructation, and gas pain RUQ abdominal pain Abdominal pain, right upper quadrant Nausea- Primary Nausea alone Bloating Flatulence, eructation, and gas pain RUQ abdominal pain Abdominal pain, right upper quadrant documented in this encounter Care Teams Landscape Account Manager Relationship Specialty Start Date End Date Ramin Neely DO PCP - General 01/19/17 Ramin Neely DO [address] [facility] [place] [address] Insurance Assigned Provider 07/11/23 documented as of this encounter Additional Source Comments The information contained in this document represents components of the legal health record. It is not the complete legal health record.[facility]
--- OUTSIDE RECORDS SUMMARY | 2024-12-06 10:27 | XMS_ITS | Encounter Summary ---
Author Organization [facility] Address [address] [facility] [address] [place] [address] Phone Care Team Providers Care Power Plant Inspector Name Role Phone Ramin Neely DO Primary Care Provider [phone] Ramin Neely DO Unavailable Encounter Details Date Type Department Care Team (Late st Contact Info) Description 04/08/2017 Ancillary Orders [facility], X-Ray [address] [address] Ramin Neely DO [address] [facility] [place] [address] Pain Social History Tobacco Use Types Packs/Day [...] Info) Description 04/09/2025 9:15 AM EST Appointment [facility], [facility] Density - [address] [address] Shannon Lofton PA [address] [place] [address] [place] [address] documented as of this encounter Results * XR HIPS 1 VW EA BILAT PLUS PELVIS (04/08/2017 1:00 PM EST) Anatomical Region Laterality Modality Hip, Pelvis Radiographic Michelle ging 04/08/2017 1:20 PM EST Impressions 04/08/2017 1:22 PM EST Mildly progressive moderate bilateral hip osteoarthritis. POS - [id number] Narrative 04/08/2017 1:22 PM EST HISTORY: As above. COMPARISON: 02/20/2014. BILATERAL HIP/PELVIS RADIOGRAPH FINDINGS: 5 views obtained. No acute fracture or malalignment. Mildly progressive moderate bilateral hip joint space narrowing with osteophytes and femoral head degenerative cysts. No destructive bone lesions or AVN. Mild L5-S1 facet arthropathy. Soft tissues are normal. Procedure Note Brittany Simms MD - 04/08/2017 HISTORY: As above. COMPARISON: 02/20/2014. BILATERAL HIP/PELVIS RADIOGRAPH FINDINGS: 5 views obtained. No acute fracture or malalignment. Mildly progressivemoderate bilateral hip joint space narrowing with osteophytes and femoralhead degenerative cysts. No destructive bone lesions or AVN. Mild L5-P0myqdy arthropathy. Soft tissues are normal. IMPRESSION: Mildly progressive moderate bilateral hip osteoarthritis. POS - [id number] Ramin Neely DO IMG XR PELVIS Final Result documented in this encounter Visit Diagnoses Diagnosis Pain Generalized pain Pain Generalized pain documented in this encounter Care Teams Power Plant Inspector Relationship Specialty Start Date End Date Ramin Neely DO PCP - General 01/19/17 Ramin Neely DO [address] [place] [address] Insurance Assigned Provider 07/11/23 documented as of this encounter Additional Source Comments The information contained in this document represents components of the legal health record. It is not the complete legal health record.[facility]
--- OUTSIDE RECORDS SUMMARY | 2024-12-06 10:27 | XMS_ITS | Encounter Summary ---
Author Organization [facility] Address [address] [place] [address] [place] [address] Phone Care Team Providers Care White Goods Appliance Tech Name Role Phone Ramin Neely DO Primary Care Provider Ramin Neely DO Unavailable Encounter Details Date Type Department Care Team (Late st Contact Info) Description 04/08/2017 Ancillary Orders [facility], X-Ray [address] [address] Ramin Neely DO [address] [facility] [place] [address] Pain Social History Tobacco Use Types Packs/Day [...] Description 04/09/2025 9:15 AM EST Appointment [facility], [facility] Density [address] [address] Shannon Lofton PA [address] [place] [address] [place] [address] documented as of this encounter Results * XR SHOULDER 2 VIEWS (RIGHT) (04/08/2017 12:59 PM EST) Anatomical Region Laterality Modality Shoulder Right Radiographic Michelle ging 04/08/2017 1:18 PM EST Impressions 04/08/2017 1:20 PM EST Moderate AC and glenohumeral joint osteoarthritis. POS - [id number] Narrative 04/08/2017 1:20 PM EST HISTORY: As above. COMPARISON: None. RIGHT SHOULDER RADIOGRAPH FINDINGS: 4 views obtained. No acute fracture or malalignment. Moderate acromioclavicular and glenohumeral joint space narrowing and osteophytes. No destructive bone lesions or AVN. Small degenerative cysts in the humeral head. Upper thoracic dextroscoliosis. No rotator cuff calcifications. Imaged right lung is clear. Procedure Note Brittany Simms MD - 04/08/2017 HISTORY: As above. COMPARISON: None. RIGHT SHOULDER RADIOGRAPH FINDINGS: 4 views obtained. No acute fracture or malalignment. Moderateacromioclavicular and glenohumeral joint space narrowing and osteophytes.No destructive bone lesions or AVN. Small degenerative cysts in thehumeral head. Upper thoracic dextroscoliosis. No rotator cuffcalcifications. Imaged right lung is clear. IMPRESSION: Moderate AC and glenohumeral joint osteoarthritis. POS - [id number] us Ramin A Bigda DO IMG XR UPPER EXTREMITY Final Res ult * XR SHOULDER 2 VIEWS (LEFT) (04/08/2017 12:58 PM EST) Anatomical Region Laterality Modality Shoulder Left Radiographic Michelle ging 04/08/2017 1:00 PM EST Impressions 04/08/2017 1:02 PM EST Rotator cuff calcific tendinopathy. POS - [id number] Narrative 04/08/2017 1:02 PM EST HISTORY: As above. COMPARISON: 06/26/2011. LEFT SHOULDER RADIOGRAPH FINDINGS: 6 views obtained. No fracture or malalignment. Joint spaces are maintained. No destructive bone lesions or AVN. New mild rotator cuff calcium deposition. Imaged left lung is clear. Procedure Note Brittany Simms MD - 04/08/2017 HISTORY: As above. COMPARISON: 06/26/2011. LEFT SHOULDER RADIOGRAPH FINDINGS: 6 views obtained. No fracture or malalignment. Joint spaces aremaintained. No destructive bone lesions or AVN. New mild rotator cuffcalcium deposition. Imaged left lung is clear. IMPRESSION: Rotator cuff calcific tendinopathy. POS - [id number] Ramin Neely DO IMG XR UPPER EXTREMITY Final Res ult documented in this encounter Visit Diagnoses Diagnosis Pain Generalized pain Pain Generalized pain Pain Generalized pain documented in this encounter Care Teams White Goods Appliance Tech Relationship Specialty Start Date End Date Ramin Neely DO PCP - General 01/19/17 Ramin Neely DO [address] [place] [address] Insurance Assigned Provider 07/11/23 documented as of this encounter Additional Source Comments The information contained in this document represents components of the legal health record. It is not the complete legal health record.[facility]
--- OUTSIDE RECORDS SUMMARY | 2024-12-06 10:27 | XMS_ITS | Encounter Summary ---
Author Organization [facility] Address [address] [place] [address] Phone Care Team Providers Care Sock Turner Name Role Phone ParishRamin skinner Primary Care Provider [phone] ParishRamin skinner Unavailable Encounter Details Date Type Department Care Team (Late st Contact Info) Description 03/29/2024 Procedure Pass [facility] Endoscopy Admitting Dept Virtual Department [address] [place] [address] Social History Tobacco Use Types Packs/Day Years [...] Info) Description 04/09/2025 9:15 AM EST Appointment [facility], [address] [address] Shannon Lofton PA 6 [facility] [place] [address] documented as of this encounter Visit Diagnoses Not on filedocumented in this encounter Care Teams Sock Turner Relationship Specialty Start Date End Date Ramin Neely DO PCP - General 01/19/17 Ramin Neely DO [address] [place] [address] [place] [address] Insurance Assigned Provider 07/11/23 documented as of this encounter Additional Source Comments The information contained in this document represents components of the legal health record. It is not the complete legal health record.[facility]
--- OUTSIDE RECORDS SUMMARY | 2024-12-06 10:27 | XMS_ITS | Encounter Summary ---
Author Organization [facility] Address [address] [facility] [address] [place] [address] Phone Care Team Providers Care Golf Coach Name Role Phone Ramin Neely DO Primary Care Provider [phone] ParishRamin skinner DO Unavailable Encounter Details Date Type Department Care Team (Latest Contact Info) Description 03/07/2024 Transcribe Orders Virtual Department [address] [place] [address] Steph Grissom NP [address] [place] [address] Nausea (Primary Dx); Bloating; RUQ abdominal pain [...] Info) Description 04/09/2025 9:15 AM EST Appointment [address] [address] Shannon Lofton PA 6 [facility] [place] [address] documented as of this encounter Visit Diagnoses Diagnosis Nausea- Primary Nausea alone Bloating Flatulence, eructation, and gas pain RUQ abdominal pain Abdominal pain, right upper quadrant documented in this encounter Care Teams Golf Coach Relationship Specialty Start Date End Date Ramin Neely DO PCP - General 01/19/17 Ramin Neely DO [address] [facility] [place] [address] Insurance Assigned Provider 07/11/23 documented as of this encounter Additional Source Comments The information contained in this document represents components of the legal health record. It is not the complete legal health record.[facility]
[2024-12-06 11:19] LABS: Hemoglobin A1C 212.8362 umol/L; Total Hemoglobin (HGBA1C) 3754.1154 umol/L
[2024-12-06 11:54] LABS: HDL Cholesterol 38 mg/dL (>40); Triglycerides 94 mg/dL (<150)
[2024-12-06 13:24] LABS: Cholesterol 198 mg/dL (<200)
== END 2024-12-06 09:27 | disposition home or self-care (01) ==
LOC: HO.10HDL 09:26
PROVIDERS: Visit Provider Internal Medicine
DX: E11.9 Type 2 diabetes mellitus without complications (principal); E78.00 Pure hypercholesterolemia, unspecified
CPT/HCPCS: 36415; 80061; 83036